=== PATIENT | male | born 1935 | race Caucasian/White ===

== ENCOUNTER 2020-06-04 12:25 | Emergency (ER) | payer MEDICARE, SELFPAY ==
--- NOTE | ~2020-06-04 | XR_ITS ---
EXAMINATION: XR abdomen/kub 1V INDICATION: Abdominal pain TECHNIQUE: Supine views of the abdomen were obtained on 2 radiographs. COMPARISON: None FINDINGS: The bowel gas pattern is normal. No dilated loops of bowel are evident. At least moderate l umbar spondylosis is noted. There is mild osteoarthritis of the hips. IMPRESSION: 1. No radiographic correlate for the patient's symptoms. Reviewed, dictated and finalized at location A.
[2020-06-04 12:38] VITALS: BP 181/79; PULSE 76; RESP 20; TEMP 36.6; O2SAT 99
--- NOTE | 2020-06-04 12:42 | ED.GENADULT ---
HPI - General Adult General Chief complaint: Urogenital-Male Stated complaint: UTI issues/abdominal pain Time Seen by Provider: 06/04/20 12:42 Source: patient, family (son and daughter) and RN notes reviewed Mode of arrival: ambulatory Limitations: other (memory loss) History of Present Illness HPI narrative: 85-year-old noncompliant male presents with daughter and son, whom all complains of fatigue, nausea, abdominal pain, dysuria for the past 10 days. Dysuria consist of burning, decrease urine, and urgency. History of BPH (last CT urogram on 05/23/20 showed a markedly enlarge prostate, RT kidney 11.4cm pole to pole, and LT 11.4cm pole to pole) and wears a depends. No treatment.? Denies fever or chills.? Denies vomiting.? No genital discharge.? No concerns for STDs. No flank pain.? Exacerbating factors urinating. Denies hematuria or genital bleeding.? Tolerating liquids well.? Ezra says he has decrease his liquid intake due to the pain he has with urination. LBM was this morning per Ezra with some straining. The patient reports he have not been diagnosed with COVID-19. The patient reports he is not waiting for the results of a COVID-19 lab test. The patient reports he do not have fever, chills, weakness. The patient reports he do not have a new or worsening cough or shortness of breath. Denies chest pain. The patient reports he do not have any rhinorrhea, congestion, sore throat, loss of taste, vomiting, or diarrhea. Denies recent traveling. Denies concerns for COVID-19 or exposures been home with limited outdoor exposure except for essential household needs and return home. At this time, patient is not suspected of having COVID-19. Some parts of this dictation were generated by voice recognition software and may contain typographical and/or grammatical inaccuracies. Related Data Home Medications Medication Instructions Recorded Confirmed Aricept 06/04/20 Flomax 06/04/20 Inderal XL 06/04/20 Metrogel 06/04/20 Plavix 06/04/20 Proscar 06/04/20 Tricor 06/04/20 Zyloprim 06/04/20 allopurinol 06/04/20 sertraline 06/04/20 trazodone 06/04/20 Allergies Allergy/AdvReac Type Severity Reaction Status Date / Time No Known Allergies Allergy Verified 06/04/20 12:42 Review of Systems Review of Systems: Narrative: CONSTITUTIONAL: Denies fever, chills, sweats. EYES: Denies visual changes, redness, discharge. ENT: Denies rhinorrhea, congestion, sore throat, otalgia. CARDIOVASCULAR: Denies chest pain, palpitations, edema. RESPIRATORY: Denies dyspnea, wheezing, cough. GASTROINTESTINAL: Denies vomiting, diarrhea. Complains of abdominal pain, nausea. GENITOURINARY: Complains of dysuria (burning, small amount, and urgency). Denies hematuria, abnormal discharge. SKIN: Denies rash or itching. MUSCULOSKELETAL: Denies acute back pain, joint pain, or myalgia. NEUROLOGIC: Denies numbness or focal weakness. PSYCHIATRIC: Denies anxiety or depression. All other systems reviewed are negative, except as documented in HPI and below. [facility] Past Medical History Medical History (Updated 06/06/20 @ 14:02 by PAT Spence) Anxiety Arthritis Benign prostatic hyperplasia CVA (cerebral vascular accident) Encephalopathy Gout Hypercholesteremia Hypertension Memory loss Obstructive sleep apnea Peripheral nerve disease Squamous cell carcinoma Surgical History Surgical History (Updated 06/04/20 @ 13:15 by PAT Spence) S/P skin biopsy squamous cell carcinoma Family History Family History (Updated 06/04/20 @ 13:51 by PAT Spence) Father Unknown family medical history Mother Unknown family medical history Social History Social History (Updated 06/04/20 @ 13:16 by PAT Spence) Living arrangements: alone Occupation/Education: retired Gender identity (if verbalized by the patient): Male Sexual Orientation (if Verbalized by the Patie
[2020-06-04] MEDS: ONDANSETRON HCL ODT 4 MG TABLET PO ×2 (12:54→13:24)
--- NOTE | 2020-06-04 13:30 | PC.NURSE ---
Patient had no relief after 1st zofran. SAMPLE SHOE INSPECTOR AND REWORKER ordered second dose of 4 mg. 1 minute after administering patient vomited 300 ml of green fluid. Patient given another dose of zofran att this time.
== END 2020-06-04 13:50 | disposition short-term general hospital (02) ==
PROVIDERS: Emergency Provider Nurse Practitioner Family
DX: R10.9 Unspecified abdominal pain (principal); R11.2 Nausea with vomiting, unspecified; F41.9 Anxiety disorder, unspecified; M19.90 Unspecified osteoarthritis, unspecified site; N40.0 Benign prostatic hyperplasia without lower urinary tract symptoms; Z86.73 Personal history of transient ischemic attack (TIA), and cerebral infarction without residual deficits; M10.9 Gout, unspecified; E78.00 Pure hypercholesterolemia, unspecified; I10 Essential (primary) hypertension; G47.33 Obstructive sleep apnea (adult) (pediatric); Z85.828 Personal history of other malignant neoplasm of skin; Z79.01 Long term (current) use of anticoagulants
CPT/HCPCS: 74018; 81003; 87086; 87088; 99213; A9270; G0463

== ENCOUNTER 2021-10-22 22:21 | Inpatient (IN) | payer MEDICARE, SELFPAY ==
[2021-10-22] VITALS (7 sets, daily range): BP systolic 163–166; BP diastolic 73–78; PULSE 89–97; RESP 13–24; TEMP 37.1; O2SAT 98–99
--- NOTE | ~2021-10-22 | XR_ITS ---
XR knee RT 3V DATE: 10/22/2021 23:06 INDICATION: Fall. Right knee injury, pain TECHNIQUE: 3 views COMPARISON: There is very FINDINGS: There is severe enthesopathy of the patella at the quadriceps and patellar tendon insertion s as well as the proximal tibia at the patellar tendon insertion. No fracture or dislocation or joint effusion is evident. No periosteal reaction or bone destruction. There is chondrocalcinosis. Joint spaces are relatively preserved. There is mild periarticular spurri ng of the patella. There is extensive calcification of the femoral, popliteal and trifurcation arteries. IMPRESSION: No fracture or dislocation or joint effusion Prominent enthesopathy of the patella and proximal tibia the quadriceps and patellar tendon insertion sites Chondrocalcinosis Mild osteoarthritis Reviewed, dictated and finalized at location A. Y LOADER IMPRESSION: No fracture or dislocation or joint effusion Prominent enthesopathy of the patella and proximal tibia the quadriceps and pat ellar tendon insertion sites Chondrocalcinosis Mild osteoarthritis
--- NOTE | ~2021-10-22 | CT_ITS ---
EXAMINATION: CT brain wo con EXAM DATE: 10/23/2021 00:46 INDICATION: head injury on eliquis . TECHNIQUE: Spiral CT of the head was performed without contrast. Axial, coronal and sagittal images were reviewed. The dose-length product (DLP) for this examination was 681.00 mGy-cm. The exposure w as tailored according to patient size, and iterative reconstruction (ASIR) was used as additional dos e reduction technique. There is no prior study for comparison. FINDINGS: Small old right parietal lobe infarction. There is no acute intraparenchymal hemorrhage. N o evidence of intraparenchymal brain mass lesion. No evidence of acute infarction. Please note that initial head CT has limited sensitivity for small or acute infarctions. There is moderate periven tricular and subcortical hypodensity, nonspecific but probably related to small vessel ischemic disea se. There is moderate prominence of the sulci and ventricles related to cerebral atrophy. There i s intracranial carotid arteriosclerosis. There are no extra-axial collections. There is no mass eff ect or midline shift. The orbits are unremarkable. Small right vertex scalp contusion. The visualiz ed sinuses and mastoid air cells are well aerated. IMPRESSION: 1. No acute intracranial findings. 2. Chronic age related findings. 3. Small old right parietal lobe cortical infarction. 4. Small right vertex scalp contusion. Reviewed, dictated and finalized at location A. PATIONAL HEALTH MANAGER
--- NOTE | ~2021-10-22 | XR_ITS ---
XR elbow RT min 3V DATE: 10/22/2021 23:06 INDICATION: Pain following fall, right elbow injury TECHNIQUE: 3 views COMPARISON: None FINDINGS: Prominent dorsal olecranon process spur. No recent fracture or dislocation or joint effusion is evident. No periosteal reaction or bone destru ction. IMPRESSION: No recent fracture or dislocation or joint effusion Dorsal olecranon spur Reviewed, dictated and finalized at location A. COPTER MECHANIC
--- NOTE | ~2021-10-22 | CT_ITS ---
EXAMINATION: CT cervical spine wo con EXAM DATE: 10/23/2021 00:45 INDICATION: Neck pain status post fall TECHNIQUE: Spiral CT of the cervical spine was performed without contrast. Axial images were reviewe d. Coronal and sagittal reformatted images cervical spine were also reviewed. The dose-length produc t (DLP) for this examination was 648.03 mGy-cm. The exposure was tailored according to patient size (auto mA exposure control), and iterative reconstruction (ASIR) was used as additional dose reduction technique. There is no prior study for comparison. FINDINGS: There is flow enthesopathy bridging the entire cervical thoracic spine without fracture hallie e identified through it. There is also ossification of the posterior longitudinal ligament causing mo derate central canal stenosis. Most of the facet joint are also fused. There is no evidence of acute cervical fracture. The odontoid process is intact. Pre-dens space is normal. Prevertebral soft tis monica is normal. There are no soft tissue abnormalities identified. There is no disc space widening o r traumatic vertebral body subluxation suspected. Carotid arteriosclerosis. A detailed level by level evaluation of spondylosis can be added as addendum if requested. IMPRESSION: 1. No acute cervical fracture. 2. Cervical spine fusion at the endplates margins, facet joints. 3. 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 Reviewed, dictated and finalized at location A. E MIDWIFE/CLINICAL INSTRUCTOR
--- NOTE | ~2021-10-22 | XR_ITS ---
XR elbow LT min 3V DATE: 10/22/2021 23:06 INDICATION: Left elbow pain following injury from fall TECHNIQUE: 3 views COMPARISON: None FINDINGS: Prominent dorsal olecranon process spur. No recent fracture or dislocation or joint effusion is detected. IMPRESSION: Prominent dorsal olecranon process spur No recent fracture or dislocation or joint effusion Reviewed, dictated and finalized at location A. ROLLER
--- NOTE | ~2021-10-22 | CT_ITS ---
EXAMINATION: CT chest abdomen pelvis w con EXAM DATE: 10/23/2021 00:46 INDICATION: Fall on eliquis, multiple bruises, RLQ tenderness. TECHNIQUE: Spiral CT of the chest, abdomen and pelvis was performed following intravenous injection o f 100 mL Omnipaque 350. Axial, coronal and sagittal images chest, abdomen and pelvis were reviewed. Coronal maximum intensity pixel images of chest reviewed. The dose-length product (DLP) for this ex amination was 1312.24 mGy-cm. The exposure was tailored according to patient size (auto mA exposure control), and iterative reconstruction (ASIR) was used as additional dose reduction technique. There is no prior study for comparison. FINDINGS: CHEST: Mildly aneurysmal ascending aorta at 4.5 cm. Moderate amount of interlobular septal thickening , interstitial lung disease. There are no pleural or pericardial effusions. Tracheobronchial tree is patent. There is no mediastinal, hilar or axillary lymphadenopathy. There is no pneumothorax. Heart is normal in size. There may be left ventricular hypertrophy. There is mild coronary arteria l calcification, arterial sclerosis. Patient has diffuse idiopathic skeletal hyperostosis (DISH). No fracture through this. ABDOMEN PELVIS: Benign peripherally calcified splenic lesion measuring about 1.5 cm. Pancreas, liver, adrenal glands are unremarkable. Gallbladder is unremarkable. No biliary obstruction. Portal and splenic veins are patent. Kidneys enhance symmetrically. There is no hydronephrosis. There is sev ere prostatomegaly, prostate measuring 6.5 cm in diameter. Some diffuse bladder wall thickening, cou ld indicate chronic cystitis, could be from outlet obstruction, BPH. Acute cystitis not excludable. There is no retroperitoneal or pelvic lymphadenopathy. There is moderate scattered arteriosclerotic disease. There is right-sided hydrocele. Possible identification of a normal appendix. The stomach and small bowel are unremarkable. There i s expected amount of colonic stool. No free intraperitoneal gas. There are no acute fractures alpesh ntified. Moderate bilateral hip osteoarthritis. Chronic bilateral L5 spondylolysis. IMPRESSION: 1. No acute chest, abdomen or pelvis findings. 2. Severe prostatomegaly, bladder wall thickening probably chronic cystitis. Could be from BPH, outl et obstruction. 3. Moderate amount of pulmonary fibrosis. 4. Mildly aneurysmal ascending aorta. Reviewed, dictated and finalized at location A. UCTION ASSOCIATE IMPRESSION: 1. No acute chest, abdomen or pelvis findings. 2. Severe prostatomegaly, bladder wall thickening probably chronic cystitis. C ould be from BPH, outlet obstruction. 3. Moderate amount of pulmonary fibrosis. 4. Mildly aneurysmal ascending aorta.
--- NOTE | ~2021-10-22 | XR_ITS ---
XR knee LT 3V DATE: 10/22/2021 23:06 INDICATION: Fall, left knee injury, pain TECHNIQUE: 3 views COMPARISON: None FINDINGS: No fracture or dislocation or joint effusion. No periosteal reaction or bone destruction. There is very prominent enthesopathy of the patella at the quadriceps and patellar tendon insertion s ites and the proximal tibia at the patellar tendon insertion site. There is chondrocalcinosis at the knee. Knee joint spaces are relatively preserved. There is femoral and popliteal and trifurcation artery calcification. IMPRESSION: No fracture or dislocation or joint effusion Chondrocalcinosis Prominent enthesopathy of the patella and proximal tibia at quadriceps and patellar tendon insertion sites Reviewed, dictated and finalized at location A. SCIENCE AND PLANNING IMPRESSION: No fracture or dislocation or joint effusion Chondrocalcinosis Prominent enthesopathy of the patella and proximal tibia at quadriceps and mcwilliams llar tendon insertion sites
[2021-10-22] MEDS: SODIUM CHLORIDE 0.9% IV 1,000 ML 250 ML IV CONT (23:07)
--- NOTE | 2021-10-22 23:17 | ED.GENADULT ---
HPI - General Adult General Chief complaint: Weakness Stated complaint: mult falls Time Seen by Provider: 10/22/21 22:28 History of Present Illness HPI narrative: Patient is a 86-year-old gentleman who presents the emergency department with chief complaint of frequent falls. Patient lives by himself has a history of dementia and frequent falls patient fell multiple times in the last couple of days including laying on the ground for approximately 8hours the patient reports that he has pain in his back area and reports that he has a couple of wounds on his back and reports that his arms are sore after he has been trying to pull himself up the patient reports that he continued to scream for help. The patient's family reports that they are concerned that he may have a urinary tract infection they report that he lives by himself and has a family member that lives about 3 houses down from. Related Data Home Medications Medication Instructions Recorded Confirmed Aricept 06/04/20 Flomax 06/04/20 Inderal XL 06/04/20 Metrogel 06/04/20 Plavix 06/04/20 Proscar 06/04/20 Tricor 06/04/20 Zyloprim 06/04/20 allopurinol 06/04/20 sertraline 06/04/20 trazodone 06/04/20 Allergies Allergy/AdvReac Type Severity Reaction Status Date / Time No Known Allergies Allergy Verified 06/04/20 12:42 Review of Systems Review of Systems: A 10 system review of systems was completed on the patient and is negative except for what is stated in the HPI. Nursing and ancillary documentation was reviewed. [facility] Past Medical History Medical History Anxiety Arthritis Benign prostatic hyperplasia CVA (cerebral vascular accident) Encephalopathy Gout Hypercholesteremia Hypertension Memory loss Obstructive sleep apnea Peripheral nerve disease Squamous cell carcinoma Surgical History Surgical History S/P skin biopsy squamous cell carcinoma Family History Family History Father Unknown family medical history Mother Unknown family medical history Social History Social History Gender identity (if verbalized by the patient): Male Sexual Orientation (if Verbalized by the Patient): Straight or Heterosexual Exam Narrative: GENERAL: Well-appearing, well-nourished, and in no acute distress. HEAD: Normocephalic, atraumatic. EYES: PERRLA and EOMI. ENT: Nares clear, no rhinorrhea or epistaxis. Mucous membranes moist. NECK: Supple. CHEST: Clear to auscultation. No respiratory distress. HEART: Regular rate and rhythm. No murmur heard. Normal peripheral pulses. ABDOMEN: Soft, nontender, nondistended, normal active bowel sounds. EXTREMITIES: Normal range of motion. No edema. There is tenderness of bilateral elbows and bilateral knees SKIN: Warm, dry, no rash. Multiple bruises, there are 2 small pressure sores in the thoracic area of the back. There is bruising present in the left upper quadrant NEURO: No focal deficits. Alert and oriented x3. PSYCH: Normal mood and affect. Course Course Emergency Course: The patient is on Eliquis and has had multiple falls and increased weakness. Patient has multiple bruises over his body given these findings the patient underwent helical imaging to evaluate for possible internal injuries. Vital Signs Vital signs: Vital Signs Temperature 37.1 C 10/22/21 22:26 Pulse Rate 93 10/22/21 22:26 Respiratory Rate 16 10/22/21 22:26 Blood Pressure 166/78 H 10/22/21 22:26 Temperature 37.1 C 10/22/21 22:26 Pulse Rate 85 10/23/21 00:16 Respiratory Rate 24 H 10/23/21 00:16 Blood Pressure 184/83 H 10/23/21 00:16 Pulse Oximetry 100 10/23/21 00:16 Medical Decision Making Vital Signs Vital Signs: Vital Sig
[2021-10-22 23:24] LABS: Basophils Percent Auto 0.2 % (0.2-1.2); Eosinophils Absolute Auto 0.1 K/mm3 (0-0.3); Eosinophils Percent Auto 0.9 % (0-4.4); Hematocrit 44.8 % (42.0-52.0); Hemoglobin 15.3 g/dL (14.0-18.0); Immature Granulocyte Absolute 0.04 K/mm3 (0.00-0.031); Immature Granulocyte Percent A 0.5 % (0-0.5); Lymphocytes Absolute Auto 1.56 K/mm3 (0.9-3.2); Lymphocytes Percent Auto 17.8 % (18.3-44.2); Mean Corpuscular HGB Conc 34.2 g/dl (32-36); Mean Corpuscular Hemoglobin 30.2 pg (26-34); Mean Corpuscular Volume 88.4 fl (80-100); Mean Platelet Volume 10.3 fl (7.4-10.4); Monocytes Absolute Auto 1.2 K/mm3 (0.1-0.6); Monocytes Percent Auto 13.7 % (2.6-8.5); Neutrophils Absolute Auto 5.9 K/mm3 (1.3-6.7); Neutrophils Percent Auto 66.9 % (45.5-73.1); Platelet Count Result 204 k/mm3 (150-375); Red Blood Count 5.07 M/mm3 (4.6-6.20); Red Cell Distribution Width 13.6 % (11.5-14.5); White Blood Count 8.8 K/mm3 (4.5-10.0)
[2021-10-22 23:33] LABS: Creatine Kinase 1124 U/L (55-170)
[2021-10-22 23:34] LABS: Lactic Acid Reflex 1.5 mmol/L (0.7-2.1)
[2021-10-22 23:36] LABS: Prothrombin Time 13.2 Seconds (11.1-14.7)
[2021-10-22 23:37] LABS: Partial Thromboplastin Time 34.1 SECONDS (22.3-36.8)
--- NOTE | 2021-10-22 23:37 | PC.NURSE ---
Pt refusing straight catheter at this time. Urinal at bedside. Pt aware of need for specimen.
[2021-10-22 23:49] LABS: Alanine Aminotransferase 41 U/L (4-50); Albumin Level 3.9 g/dL (3.5-5.1); Alkaline Phosphatase 55 U/L (38-126); Anion Gap 11 mmol/L (8-16); Aspartate Amino Transferase 80 U/L (17-59); Blood Urea Nitrogen 19 mg/dL (9-20); Calcium 8.9 mg/dL (8.4-10.2); Carbon Dioxide 26 mmol/L (22-30); Chloride 103 mmol/L (98-107); Estimated Glomerular Filt Rate > 60; Glucose 156 mg/dL (65-110); Magnesium 1.9 mg/dL (1.6-2.3); Potassium 2.8 mmol/L (3.4-5.0); Sodium 140 mmol/L (137-145)
[2021-10-22 23:54] LABS: Add Urine Microscopic? YES; Appearance Urine Turbid (Clear); Bacteria Urine 4+ /hpf; Bilirubin Urine Negative (Negative); Blood Urine 1+ (Negative); Color Urine Yellow (Yellow); Glucose Urine UA 1+ mg/dL (Negative); Hyaline Casts Urine 30-49 /lpf; Ketones Urine Trace mg/dL (Negative); Leukocyte Esterase Ur 2+ LEU/UL (Negative); Mucus Urine Moderate /lpf; Nitrate Urine Negative (Negative); Protein Urine 2+ mg/dL (Negative); RBC Urine 21-50 /hpf (0-2); Specific Grav Ur 1.018 (1.001-1.035); WBC Clumps Urine Present /HPF; WBC Urine >75 /hpf
[2021-10-22 23:56] LABS: SARS-CoV-2 RNA PCR Negative
[2021-10-22 23:57] LABS: Troponin I < 0.012 ng/mL (0.000-0.034)
[2021-10-23] VITALS (12 sets, daily range): BP systolic 128–184; BP diastolic 50–98; PULSE 71–90; RESP 16–24; TEMP 36.4–36.8; O2SAT 97–100; BMI 24.3
--- NOTE | 2021-10-23 00:18 | PC.NURSE ---
Pt to CT at this time.
[2021-10-23] MEDS: MAGNESIUM SULF 1 GM/D5W 100 ML 1 GM/100 ML BAG IVPB (01:17)
[2021-10-23] MEDS: POTASSIUM CHLORIDE INJ 40 MEQ in SODIUM CHLORIDE 0.9% IV 500 ML 130 MEQ IVPB (01:36)
--- NOTE | 2021-10-23 03:28 | ADMGEN ---
This patient, Ezra Arias, was admitted to Medical Room 242-. Patient/family oriented to hospital policies and general routines including ID bracelet, bed and alarms, visiting hours, pain management, procedures, bathroom and other care routines, personal items, smoking policy, room service/diet, and visiting hours. Information on how to activate the Rapid Response Team has been discussed. Patient/Family are encouraged to report perceived risks to care and to ask questions if they do not understand what they are told or what they should do.
[2021-10-23] MEDS: SODIUM CHLORIDE 0.9% IV 1,000 ML 125 ML IV CONT ×3 (05:39→20:13)
--- NOTE | 2021-10-23 07:36 | PM.IMHP ---
H&P: HPI History of Present Illness Date/Time: 10/23/21 07:36 Chief Complaint: Fall Narrative: Patient is an 86-year-old male with past medical history of CVA, frequent falls, frequent UTIs, hypertension, BPH who presented to the ED after for falling. Patient stated that he had went to the bathroom and fell in the bathroom crawled all the way to the kitchen to get himself up and then fell again. Patient stated that he laid on the kitchen floor for roughly 8 hours before somebody had found him. He states that his knees, calfs, arms are all very achy and hurt. Patient also states that he has not had any urgency or frequency to urinate however he has been getting up and going to the bathroom 5-6 times per night. Patient is very disgruntled and wants to go home however I did explain to him about his rhabdomyolysis. He also stated that he felt like his ears were full of wax. I did look into his ears and they are pretty waxy but everything is intact and does not appear to be bulging. Patient did state that he has a little bit of incontinence to stool and will sometimes ?squirt into his pee pants.? Patient also stated that he does have frequent UTIs. Patient also stated that he has had history of urinary catheters and sees a urologist. Patient also stated that he has been cough and been congested lately. Patient states that he has done this in the past. However he would like to go home he feels more comfortable there. Patient denies chest pain, shortness of breath, abdominal pain, nausea, vomiting, diarrhea, congestion. Patient did eat breakfast and stated that he could eat more than what was provided. Patient also stated that he was having pain, where he hit his eye that has a welp on it. He denies visual deficients. He does get up and walk at home. He also is complaining of back pain. He denies sweats, fevers, and chills. Patient is being admitted to the hospitalist service in observation. Review of Systems Review of Systems: All systems reviewed & are unremarkable except as noted in HPI and below PMFSH Past Medical History Medical History Anxiety Arthritis Benign prostatic hyperplasia CVA (cerebral vascular accident) Encephalopathy Gout Hypercholesteremia Hypertension Memory loss Obstructive sleep apnea Peripheral nerve disease Squamous cell carcinoma Surgical History Surgical History S/P skin biopsy squamous cell carcinoma Family History Family History Father Unknown family medical history Mother Unknown family medical history Social History Social History (Updated 10/23/21 @ 11:35 by CASEY Weiss) Social History: 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 Patient wishes to be a full code at this time. Patient also states that his son Sameer or his daughter Marla will be surrogate for him if he is not able to make his own decisions. Patient lives at home by himself and wants to keep it that way. 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
[2021-10-23] MEDS: MORPHINE SULFATE (*CRX) 4 MG/ML INJ 0.5 MG IV PUSH (09:36)
[2021-10-23] MEDS: APIXABAN 5 MG TABLET PO ×2 (09:40→18:05)
[2021-10-23] MEDS: ROSUVASTATIN 10 MG TABLET 20 MG PO (09:40)
[2021-10-23] MEDS: FINASTERIDE 5 MG TABLET PO (09:40)
[2021-10-23] MEDS: SERTRALINE HCL 50 MG TABLET PO (09:41)
[2021-10-23] MEDS: FELODIPINE 5 MG TAB CR PO (09:41)
[2021-10-23] MEDS: POTASSIUM CHLORIDE 20 MEQ TABLET.ER PO (09:41)
[2021-10-23] MEDS: allopurinoL 300 MG TABLET PO (09:41)
[2021-10-23] MEDS: FENOFIBRATE,MICRONIZED 48 MG TABLET PO (12:09)
[2021-10-23] MEDS: HYDROcodone/acetaminophen (*CRX) 5-325 MG TABLET 1 TAB PO (12:55)
--- NOTE | 2021-10-23 16:52 | PC.NURSE ---
On 10/23/21 the student Mine Jimenez, provided care and completed [employer] documentation on this patient I have reviewed the student's documentation and agree with the findings
[2021-10-23] MEDS: DONEPEZIL HCL 5 MG TABLET PO (20:07)
[2021-10-23] MEDS: traZODone HCL 50 MG TABLET PO (20:07)
[2021-10-23] MEDS: TAMSULOSIN HCL 0.4 MG CAPSULE PO (20:07)
[2021-10-24] VITALS: PULSE 68
[2021-10-24 04:00] VITALS: PULSE 80
[2021-10-24] MEDS: SODIUM CHLORIDE 0.9% IV 1,000 ML 125 ML IV CONT (04:41)
[2021-10-24 05:35] VITALS: BP 159/72; PULSE 78; RESP 16; TEMP 36.6; O2SAT 94
[2021-10-24] MEDS: HYDROcodone/acetaminophen (*CRX) 5-325 MG TABLET 1 TAB PO (05:52)
[2021-10-24 05:53] LABS: Basophils Percent Auto 0.4 % (0.2-1.2); Eosinophils Absolute Auto 0.3 K/mm3 (0-0.3); Eosinophils Percent Auto 5.5 % (0-4.4); Hematocrit 35.9 % (42.0-52.0); Hemoglobin 12.4 g/dL (14.0-18.0); Immature Granulocyte Absolute 0.01 K/mm3 (0.00-0.031); Immature Granulocyte Percent A 0.2 % (0-0.5); Lymphocytes Absolute Auto 1.57 K/mm3 (0.9-3.2); Lymphocytes Percent Auto 30.9 % (18.3-44.2); Mean Corpuscular HGB Conc 34.5 g/dl (32-36); Mean Corpuscular Volume 86.9 fl (80-100); Mean Platelet Volume 10.5 fl (7.4-10.4); Monocytes Absolute Auto 0.7 K/mm3 (0.1-0.6); Monocytes Percent Auto 13.2 % (2.6-8.5); Neutrophils Absolute Auto 2.5 K/mm3 (1.3-6.7); Neutrophils Percent Auto 49.8 % (45.5-73.1); Platelet Count Result 193 k/mm3 (150-375); Red Blood Count 4.13 M/mm3 (4.6-6.20); Red Cell Distribution Width 13.4 % (11.5-14.5); White Blood Count 5.1 K/mm3 (4.5-10.0)
[2021-10-24 06:26] LABS: Alanine Aminotransferase 29 U/L (4-50); Alkaline Phosphatase 41 U/L (38-126); Anion Gap 5 mmol/L (8-16); Aspartate Amino Transferase 44 U/L (17-59); Bilirubin,Total 0.7 mg/dL (0.2-1.3); Blood Urea Nitrogen 7 mg/dL (9-20); Calcium 7.7 mg/dL (8.4-10.2); Carbon Dioxide 27 mmol/L (22-30); Chloride 108 mmol/L (98-107); Creatine Kinase 390 U/L (55-170); Estimated CRCL calculation 81 ml/min; Estimated Glomerular Filt Rate > 60; Glucose 100 mg/dL (65-110); Magnesium 1.7 mg/dL (1.6-2.3); Potassium 2.7 mmol/L (3.4-5.0); Sodium 140 mmol/L (137-145)
[2021-10-24] MEDS: POTASSIUM CHLORIDE 20 MEQ TABLET 40 MEQ PO (06:40)
[2021-10-24] MEDS: MAGNESIUM SULF 2 GM/WATER 50ML 2 GM/50 ML BAG IVPB (07:47)
[2021-10-24] MEDS: POTASSIUM CHLORIDE INJ 40 MEQ in SODIUM CHLORIDE 0.9% IV 500 ML 130 MEQ IVPB (08:16)
[2021-10-24 09:15] VITALS: PULSE 83
[2021-10-24] MEDS: APIXABAN 5 MG TABLET PO (09:45)
[2021-10-24] MEDS: HYDROmorphone HCL INJ (*CRX) 1 MG/ML SYR 0.5 MG IV PUSH (09:45)
[2021-10-24] MEDS: POTASSIUM CHLORIDE 20 MEQ PACKET (FOR LIQUID) PO (09:45)
--- NOTE | 2021-10-24 10:15 | P.DS_ITS ---
DS: Admitting Diagnosis Discharge Date 10/24/21 1015 Admitting Diagnosis Acute UTI/fall DS: Discharge Diagnosis Discharge Diagnosis (1) Falls frequently: Code(s): R29.6 - Repeated falls Status: Acute Assessment and Plan: * reported multiple falls over the last few weeks * No found injuries * reports pain * Elbow xray- No recent fracture or dislocation or joint effusion, Dorsal olecranon spur * knee xray- No fracture or dislocation or joint effusion * Cervical CT no acute fracture * Head ct- old infarcts * UA suspicious for UTI * PT/OT * Fall precautions * Orthostatic BP (2) Rhabdomyolysis: Qualifiers: Rhabdomyolysis type: non-traumatic Qualified Code(s): M62.82 - Rhabdomyolysis Code(s): M62.82 - Rhabdomyolysis Status: Acute Assessment and Plan: * CK 390 today * Reported on the floor for >8 hours * IV fluids 125ml/hr * Trend labs * Trend urine output * Monitor electrolytes (3) Acute hypokalemia: Code(s): E87.6 - Hypokalemia Status: Acute Assessment and Plan: * K 2.7 * Replace with 40IV and 40PO + 20 that is scheduled * Recheck K 1 hour post infusion * Tend labs * Replace as indicated (4) Benign prostatic hyperplasia: Code(s): N40.0 - Benign prostatic hyperplasia without lower urinary tract symptoms Status: Acute Assessment and Plan: * Continue tamsulosin and finasteride * PRN bladder scans * Consider urinary catheter * Trend output * Strict I&Os (5) Hyperlipidemia: Code(s): E78.5 - Hyperlipidemia, unspecified Status: Acute Assessment and Plan: * Continue home rosuvastatin 20mg (6) Dementia: Code(s): F03.90 - Unspecified dementia without behavioral disturbance Status: Acute Assessment and Plan: * Continue Donepezil, sertraline, and trazodone * Monitor symptoms * Could need to be placed. (7) Acute UTI: Code(s): N39.0 - Urinary tract infection, site not specified Status: Acute Assessment and Plan: * UA is turbid, 1+ blood, 2+ Leukocyte esterase, WBC >75, WBC clumps present, Bacteria 4+, moderate Mucus * IV ceftriaxone * Urine culture Klebsiella oxytoca * Will DC on augmentin * tailor to sensitivities DS: Summary Hospital Course Hospital Course: Patient is an 86-year-old male with a past medical history of CVA, frequent falls, frequent UTIs, hypertension, BPH presented to the ED after falling. Patient fell more than once prior to entry and admission. Upon admission labs were taken and patient was noted to have an elevated CK of 1124. Patient was started on IV fluids and CK his came down to 290. UA was collected and was suspicious for UTI urine culture did present with Klebsiella oxytoca which was sensitive to ceftriaxone and will be converted to Augmentin upon discharge. Potassium was also noted to be low at 2.8 upon admission and 2.7 today. Patient was given IV and oral supplementation and potassium is better at 3.5. Patient was also treated for back and neck pain. Patient cannot seem to get comfortable however is ready to go home. Patient is stable for discharge at this time. Vital signs are stable. Labs have also came back and are stable enough for discharge. Talked to his son day and about discharge planning. Explained to the son that I feel like he needs to have an appointment with his primary care physician with
--- NOTE | 2021-10-24 10:15 | PM.DS ---
DS: Admitting Diagnosis Discharge Date 10/24/21 1015 Admitting Diagnosis Acute UTI/fall DS: Discharge Diagnosis Discharge Diagnosis (1) Falls frequently: Code(s): R29.6 - Repeated falls Status: Acute Assessment and Plan: reported multiple falls over the last few weeks No found injuries reports pain Elbow xray- No recent fracture or dislocation or joint effusion, Dorsal olecranon spur knee xray- No fracture or dislocation or joint effusion Cervical CT no acute fracture Head ct- old infarcts UA suspicious for UTI PT/OT Fall precautions Orthostatic BP (2) Rhabdomyolysis: Qualifiers: Rhabdomyolysis type: non-traumatic Qualified Code(s): M62.82 - Rhabdomyolysis Code(s): M62.82 - Rhabdomyolysis Status: Acute Assessment and Plan: CK 390 today Reported on the floor for >8 hours IV fluids 125ml/hr Trend labs Trend urine output Monitor electrolytes (3) Acute hypokalemia: Code(s): E87.6 - Hypokalemia Status: Acute Assessment and Plan: K 2.7 Replace with 40IV and 40PO + 20 that is scheduled Recheck K 1 hour post infusion Tend labs Replace as indicated (4) Benign prostatic hyperplasia: Code(s): N40.0 - Benign prostatic hyperplasia without lower urinary tract symptoms Status: Acute Assessment and Plan: Continue tamsulosin and finasteride PRN bladder scans Consider urinary catheter Trend output Strict I&Os (5) Hyperlipidemia: Code(s): E78.5 - Hyperlipidemia, unspecified Status: Acute Assessment and Plan: Continue home rosuvastatin 20mg (6) Dementia: Code(s): F03.90 - Unspecified dementia without behavioral disturbance Status: Acute Assessment and Plan: Continue Donepezil, sertraline, and trazodone Monitor symptoms Could need to be placed. (7) Acute UTI: Code(s): N39.0 - Urinary tract infection, site not specified Status: Acute Assessment and Plan: UA is turbid, 1+ blood, 2+ Leukocyte esterase, WBC >75, WBC clumps present, Bacteria 4+, moderate Mucus IV ceftriaxone Urine culture Klebsiella oxytoca Will DC on augmentin tailor to sensitivities DS: Summary Hospital Course Hospital Course: Patient is an 86-year-old male with a past medical history of CVA, frequent falls, frequent UTIs, hypertension, BPH presented to the ED after falling. Patient fell more than once prior to entry and admission. Upon admission labs were taken and patient was noted to have an elevated CK of 1124. Patient was started on IV fluids and CK his came down to 290. UA was collected and was suspicious for UTI urine culture did present with Klebsiella oxytoca which was sensitive to ceftriaxone and will be converted to Augmentin upon discharge. Potassium was also noted to be low at 2.8 upon admission and 2.7 today. Patient was given IV and oral supplementation and potassium is better at 3.5. Patient was also treated for back and neck pain. Patient cannot seem to get comfortable however is ready to go home. Patient is stable for discharge at this time. Vital signs are stable. Labs have also came back and are stable enough for discharge. Talked to his son day and about discharge planning. Explained to the son that I feel like he needs to have an appointment with his primary care physician within the next week. Patient denies chest pain, shortness of breath, nausea, vomiting, diarrhea, constipation. I did also talk to the patient about wearing a Life Alert button so that the patient does not have to lay on the floor and is able to be taking care of prior to coming in. Status at Discharge Functional status at discharge: uses cane/walker Overall status at discharge: patient is progressing back to baseline Time Spent with Patient Time attestation: Total time spent providing and/or coordinating discharge services: 48 mi
[2021-10-24 14:35] VITALS: BP 157/84; PULSE 78; RESP 18; TEMP 36.4; O2SAT 99
[2021-10-24 15:56] LABS: Potassium 3.5 mmol/L (3.4-5.0)
[2021-10-24 16:00] VITALS: PULSE 70
== END 2021-10-24 17:48 | disposition home health service (06) | DRG 690 ==
LOC: ANHED 10-23 01:42 → ANH2MED 10-23 03:03
PROVIDERS: Admitting Provider Internal Medicine; Emergency Provider Emergency Medicine; Visit Provider Nurse Practitioner
DX: N39.0 Urinary tract infection, site not specified (principal); M62.82 Rhabdomyolysis; B96.89 Other specified bacterial agents as the cause of diseases classified elsewhere; Z20.822 Contact with and (suspected) exposure to COVID-19; R29.6 Repeated falls; E87.6 Hypokalemia; N40.0 Benign prostatic hyperplasia without lower urinary tract symptoms; E78.5 Hyperlipidemia, unspecified; F03.90 Unspecified dementia, unspecified severity, without behavioral disturbance, psychotic disturbance, mood disturbance, and anxiety; I10 Essential (primary) hypertension; M19.90 Unspecified osteoarthritis, unspecified site; G47.33 Obstructive sleep apnea (adult) (pediatric); Z85.828 Personal history of other malignant neoplasm of skin; Z86.73 Personal history of transient ischemic attack (TIA), and cerebral infarction without residual deficits; Z87.891 Personal history of nicotine dependence
CPT/HCPCS: 36415; 70450; 71260; 72125; 73080; 73562; 74177; 80053; 81001; 82550; 83605; 83735; 84132; 84484; 85025; 85610; 85730; 87077; 87086; 87186; 96361; 96365; 96366; 96367; 96368; 96375; 96376; 97116; 97161; 97165; 97530; 97535; 99285; A9270; C9803; G0378; J0696; J1170; J2270; J3475; J3480; J7030; J7040; Q9967; U0003; U0005

== ENCOUNTER 2021-12-07 15:57 | Outpatient (NON) | payer MEDICARE, SELFPAY ==
[2021-12-07 16:35] LABS: Add Urine Microscopic? YES; Appearance Urine Cloudy (Clear); Bilirubin Urine Negative (Negative); Blood Urine Negative (Negative); Color Urine Yellow (Yellow); Glucose Urine UA Negative (Negative); Hyaline Casts Urine 30-49 /lpf; Ketones Urine Negative (Negative); Leukocyte Esterase Ur 1+ LEU/UL (NEGATIVE); Mucus Urine Rare /lpf; Nitrate Urine Negative (Negative); Protein Urine Negative (Negative); Specific Grav Ur 1.017 (1.001-1.035); Squamous Epithelial Cell Urine Few /hpf (Few); Urobilinogen Urine Negative mg/dL (<2.0)
== END 2021-12-07 15:58 | disposition home or self-care (01) ==
LOC: HOME HLTH 16:04
DX: N39.0 Urinary tract infection, site not specified (principal); E87.6 Hypokalemia; M62.82 Rhabdomyolysis; F03.90 Unspecified dementia, unspecified severity, without behavioral disturbance, psychotic disturbance, mood disturbance, and anxiety
CPT/HCPCS: 81001; 87077; 87086; 87186

== ENCOUNTER 2022-05-09 21:35 | Inpatient (IN) | payer MEDICARE, SELFPAY ==
--- NOTE | ~2022-05-09 | XR_ITS ---
EXAMINATION: XR abdomen/kub 1V DATE: 05/15/2022 15:37 INDICATION: Abdominal pain. TECHNIQUE: A supine view of the abdomen on 2 radiographs was obtained. COMPARISON: CT abdomen and pelvis 10/23/2021 FINDINGS: There are no dilated loops of bowel. There is a small volume of stool in the colon. There i s no visible urolithiasis. IMPRESSION: 1. Normal bowel gas pattern. Reviewed, dictated and finalized at location A.
--- NOTE | ~2022-05-09 | MR_ITS ---
EXAMINATION: MR brain/brain stem wo con DATE: 05/10/2022 14:50 INDICATION: Altered mental status. TECHNIQUE: Magnetic resonance imaging (MRI) of the brain and brainstem was performed without intraven ous contrast. COMPARISON: Head CT 05/09/2022 FINDINGS: There is no intracranial hemorrhage, acute infarction, or abnormal intracranial mass lesion . There are scattered areas of nonspecific increased T2-weighted signal intensity in the cerebral whi te matter and shelly. There is an old infarct in right parietal lobe. There is an old infarct in right occipital lobe. The ventricles are normal in size. There is mild mucosal thickening in the ethmoid si nuses. The orbits are normal. The mastoid air cells are normal. IMPRESSION: 1. Old infarcts in the right parietal lobe and right occipital lobe. 2. Moderate nonspecific cerebral white matter disease and pontine disease, which likely represents ch ronic small vessel ischemic disease. Reviewed, dictated and finalized at location A. IMPRESSION: 1. Old infarcts in the right parietal lobe and right occipital lobe. 2. Moderate nonspecific cerebral white matter disease and pontine disease, whic h likely represents chronic small vessel ischemic disease.
--- NOTE | ~2022-05-09 | XR_ITS ---
EXAMINATION: XR chest 1V portable DATE: 05/10/2022 00:59 INDICATION: Altered mental status. TECHNIQUE: A single frontal view of the chest was obtained. COMPARISON: Chest CT 10/23/2021 FINDINGS: The lung volumes are normal. There is a diffuse interstitial pattern in the lungs with a pe ripheral and lower lung predominance. No pleural effusion or pneumothorax. The heart size is normal IMPRESSION: 1. Stable chronic interstitial lung disease. Reviewed, dictated and finalized at location A.
--- NOTE | ~2022-05-09 | CT_ITS ---
EXAMINATION: CT brain wo con DATE: 05/10/2022 00:26 INDICATION: Altered mental status. TECHNIQUE: Computed tomography (CT) of the head was performed without intravenous contrast. The mA wa s adjusted according to patient size. Iterative reconstruction technique was employed. The dose-lengt h product was 2019.58 mGy-cm. COMPARISON: Head CT 10/23/2021 FINDINGS: There are scattered areas of low attenuation in the cerebral white matter. There is an old infarct in right parietal lobe. There is no intracranial hemorrhage, acute infarction, or abnormal in tracranial mass lesion. The ventricles are normal in size. The orbits are normal. There is mild mucos al thickening in the ethmoid sinuses. The mastoid air cells are normal. There is cerumen in the exter nal auditory canals. IMPRESSION: 1. Old infarct in right parietal lobe. 2. Moderate nonspecific cerebral white matter disease, which likely represents chronic small vessel i schemic disease. Reviewed, dictated and finalized at location A. IMPRESSION: 1. Old infarct in right parietal lobe. 2. Moderate nonspecific cerebral white matter disease, which likely represents chronic small vessel ischemic disease.
[2022-05-09 21:41] VITALS: BP 152/90; PULSE 113; RESP 30; TEMP 36.6; O2SAT 100
--- NOTE | 2022-05-09 21:41 | ECG_ITS ---
Measurements Intervals [place] Rate: 106 P: DE: 0 QRS: -9 QRSD: 87 T: 63 QT: 354 QTc: 471 Interpretive Statements SINUS TACHYCARDIA WITH PACS PREVIOUS INFERIOR MYOCARDIAL INFARCTION , PROBABLY OLD [30 ms Q WAVE IN II/aVF] ABNORMAL RHYTHM ECG NO PREVIOUS ECG AVAILABLE FOR COMPARISON Electronically Signed On 05-10-2022 10:21:15 CDT by Dipak Robertson M.D.
[2022-05-09 22:18] LABS: Basophils Percent Auto 0.3 % (0.2-1.2); Eosinophils Absolute Auto 0.1 K/mm3 (0-0.3); Eosinophils Percent Auto 1.3 % (0-4.4); Hematocrit 47.4 % (42.0-52.0); Hemoglobin 15.4 g/dL (14.0-18.0); Immature Granulocyte Absolute 0.02 K/mm3 (0.00-0.031); Immature Granulocyte Percent A 0.3 % (0-0.5); Lymphocytes Absolute Auto 1.26 K/mm3 (0.9-3.2); Lymphocytes Percent Auto 18.1 % (18.3-44.2); Mean Corpuscular HGB Conc 32.5 g/dl (32-36); Mean Corpuscular Volume 86.2 fl (80-100); Mean Platelet Volume 10.2 fl (7.4-10.4); Monocytes Absolute Auto 0.6 K/mm3 (0.1-0.6); Monocytes Percent Auto 8.2 % (2.6-8.5); Neutrophils Percent Auto 71.8 % (45.5-73.1); Platelet Count Result 219 k/mm3 (150-375); Red Cell Distribution Width 14.1 % (11.5-14.5)
[2022-05-09 22:23] LABS: Bacteria Urine Trace /hpf; Hyaline Casts Urine 20-29 /lpf; Mucus Urine Rare /lpf; RBC Urine 21-50 /hpf (0-2); Squamous Epithelial Cell Urine Rare /hpf (Few)
--- NOTE | 2022-05-09 22:27 | ED.AMS ---
HPI - Altered Mental Status General Chief Complaint: Altered Mental Status Stated Complaint: AMS Time Seen by Provider: 05/09/22 21:57 History of Present Illness HPI narrative: 87-year-old male brought in by EMS secondary to altered mental status. Patient is got some degree of dementia and is also had CVA as well as multiple TIAs. His daughter was over the house today and he was confused walk around without any pants on look like he was trying to put depends on. He had a blank stare and would not really answer her questions. She called her brother over who came over and witnessed the same thing and subsequently they called 911 and brought to the emergency room. Sons at bedside at this time. Dad lives by himself and for the most part is able to take care of himself. He does have a history of frequent falls but no history of any recent falls that they are aware of. States he has had episodes like this in the past associated with urinary tract infection he does have urinary incontinence. Related Data Home Medications Medication Instructions Recorded Confirmed allopurinol 300 mg tablet 300 mg PO DAILY 10/23/21 10/23/21 apixaban 5 mg tablet (Eliquis) 5 mg PO BID 10/23/21 10/23/21 cholecalciferol (vitamin D3) 50 50 mcg PO DAILY 10/23/21 10/23/21 mcg (2,000 unit) capsule (Vitamin D3) cyanocobalamin (vitamin B-12) 1,000 mcg PO DAILY 10/23/21 10/23/21 1,000 mcg tablet donepezil 5 mg tablet 5 mg PO HS 10/23/21 10/23/21 felodipine 5 mg tablet,extended 5 mg PO DAILY 10/23/21 10/23/21 release 24 hr fenofibrate nanocrystallized 48 mg 48 mg PO DAILY 10/23/21 10/23/21 tablet finasteride 5 mg tablet 5 mg PO DAILY 10/23/21 10/23/21 propranolol 160 mg capsule,24 160 mg PO DAILY 10/23/21 10/23/21 hr,extended release rosuvastatin 20 mg tablet 20 mg PO DAILY 10/23/21 10/23/21 selenium 100 mcg tablet 100 mcg PO DAILY 10/23/21 10/23/21 sertraline 50 mg tablet 50 mg PO DAILY 10/23/21 10/23/21 tamsulosin 0.4 mg capsule 0.4 mg PO HS 10/23/21 10/23/21 trazodone 50 mg tablet 50 mg PO 10/23/21 10/23/21 Allergies Allergy/AdvReac Type Severity Reaction Status Date / Time No Known Allergies Allergy Verified 05/09/22 22:20 Review of Systems Review of Systems: CONSTITUTIONAL: Denies fever, chills, or sweats. EYES: Denies visual changes, redness, or discharge. ENT: Denies rhinorrhea, congestion, sore throat, or otalgia. CARDIOVASCULAR: Denies chest pain, palpitations, or edema. RESPIRATORY: Denies cough or dyspnea. GASTROINTESTINAL: Denies nausea, vomiting, or diarrhea. Complaining of suprapubic abdominal tenderness GENITOURINARY: Denies dysuria or hematuria. Has urinary incontinence SKIN: Denies rash or itching. MUSCULOSKELETAL: Denies back pain, joint pain, or myalgia. NEUROLOGIC: Denies headache, numbness, or weakness. PSYCHIATRIC: Denies anxiety or depression. 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 Patient wishes to be a full code at this time. Patient also states that his son Sameer or his daughter Marla will be surrogate for him if he is not able to make his own decisions. Patient lives at home by himself and wants to keep it that way. Smoking packs per day: 1 Smokin
[2022-05-09 22:28] LABS: Prothrombin Time 12.9 Seconds (11.1-14.7)
[2022-05-09 22:29] LABS: Partial Thromboplastin Time 37.5 SECONDS (22.3-36.8)
[2022-05-09 22:30] LABS: Alanine Aminotransferase 20 U/L (6-50); Albumin Level 4.4 g/dL (3.5-5.1); Alkaline Phosphatase 70 U/L (38-126); Anion Gap 10 mmol/L (8-16); Aspartate Amino Transferase 23 U/L (17-59); Bilirubin,Total 0.7 mg/dL (0.2-1.3); Blood Urea Nitrogen 19 mg/dL (9-20); Calcium 9.6 mg/dL (8.4-10.2); Carbon Dioxide 28 mmol/L (22-30); Chloride 102 mmol/L (98-107); Estimated CRCL calculation 37 ml/min; Estimated Glomerular Filt Rate 52; Glucose 137 mg/dL (65-110); Sodium 140 mmol/L (137-145)
[2022-05-09 22:34] LABS: Appearance Urine Clear (Clear); Bilirubin Urine 1+ (Negative); Blood Urine 2+ (Negative); Color Urine Yellow (Yellow); Glucose Urine UA Negative (Negative); Ketones Urine Negative (Negative); Leukocyte Esterase Ur Negative LEU/UL (Negative); Nitrate Urine Negative (Negative); Protein Urine Negative (Negative); Specific Grav Ur 1.015 (1.001-1.035); Urobilinogen Urine 0.2 mg/dL (<2.0); pH Urine 5.5 (5.0-9.0)
[2022-05-09 22:36] LABS: Add Urine Microscopic? YES
[2022-05-09 23:05] VITALS: BP 144/95; PULSE 99; RESP 17; O2SAT 100
[2022-05-09] MEDS: LORazepam INJ (*CRX) 2 MG/ML VIAL 0.5 MG IV PUSH ×2 (23:17→23:46)
[2022-05-10] VITALS (7 sets, daily range): BP systolic 143–168; BP diastolic 79–95; PULSE 70–92; RESP 17–20; TEMP 36.3–37.5; O2SAT 94–100; BMI 22.3
--- NOTE | 2022-05-10 00:55 | PC.NURSE ---
PT continues to climb out of bed. ERP aware. Son at bedside. Blood in depends noted. ERP called to bedside. Pt also incontinent of urine. Bloody urine noted. Depends changed.
[2022-05-10] MEDS: POTASSIUM CHLORIDE 20 MEQ PACKET (FOR LIQUID) 40 MEQ PO (01:03)
--- NOTE | 2022-05-10 01:07 | PM.IMHP ---
H&P: HPI History of Present Illness Date/Time: 05/10/22 01:07 Chief Complaint: altered mental status Narrative: This is an 87-year-old male with past medical history significant for dementia, stroke, benign prostatic hyperplasia, obstructive sleep apnea. patient was brought to the emergency room via EMS after he was found at home with no clothes on wondering around and a blank stare on his face according to son he was seen the day before at around 5 he was his usual patient lives on his own and is able to fix meals and has a daughter that lives 3 doors from him and checks in frequently. Most of the history has been obtained upon reviewing medical records and speaking to emergency room physician and son who is at bedside patient is unable to give any history due to acute delirium and confusion with restlessness and agitation. Preliminary workup has been essentially nonrevealing. Patient is been admitted for further evaluation management and treatment. Review of Systems Review of Systems: ROS unobtainable: Yes unobtainable due to mental status ( confusion, acute delirium.) [facility] Past Medical History Medical History (Updated 05/10/22 @ 03:50 by Erin Sarah MD) Anxiety Arthritis Benign prostatic hyperplasia CVA (cerebral vascular accident) Encephalopathy Gout Hypercholesteremia Hypertension Memory loss Obstructive sleep apnea Peripheral nerve disease Squamous cell carcinoma Surgical History Surgical History S/P skin biopsy squamous cell carcinoma Family History Family History Father Unknown family medical history Mother Unknown family medical history Social History Social History Social History: 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 Patient wishes to be a full code at this time. Patient also states that his son Sameer or his daughter Marla will be surrogate for him if he is not able to make his own decisions. Patient lives at home by himself and wants to keep it that way. Smoking packs per day: 1 Smoking cigarettes per day: 20.0 Smoking status: Former smoker Alcohol intake: former Drinks per week: 3 Alcohol use details: He no longer likes beer Substance use: never Substance use type: does not use Additional occupation/education comments: [employer] of malpractice and personal injury Gender identity (if verbalized by the patient): Male Sexual Orientation (if Verbalized by the Patient): Straight or Heterosexual Spiritual care concerns: No Agree to blood products: Yes Meds Home Medications and Allergies Home Medications Medication Instructions Recorded Confirmed Type allopurinol 300 mg tablet 300 mg PO DAILY 10/23/21 05/10/22 History cholecalciferol (vitamin D3) 50 50 mcg PO DAILY 10/23/21 05/10/22 History mcg (2,000 unit) capsule (Vitamin D3) cyanocobalamin (vitamin B-12) 1,000 mcg PO DAILY 10/23/21 05/10/22 History 1,000 mcg tablet donepezil 5 mg tablet 5 mg PO BID 10/23/21 05/10/22 History felodipine 5 mg tablet,extended 5 mg PO DAILY 10/23/21 05/10/22 History release 24 hr fenofibrate nanocrystallized 48 mg 48 mg PO DAILY 10/23/21 05/10/22 History tablet finasteride 5 mg tablet 5 mg PO DAILY 10/23/21 05/10/22 History propranolol 160 mg capsule,24 160 mg PO DAILY 10/23/21 05/10/22 History hr,extended release selenium 100 mcg tablet 100 mcg PO DAILY 10/23/21 05/10/22 History sertraline 50 mg tablet 100 mg PO BID 10/23/21 05/10/22 History tamsulosin 0.4 mg capsule 0.4 mg PO HS 10/23/21 05/10/22 History trazodone 50 mg tablet 50 mg PO HS PRN Pain 10/23/21 05/10/22 History potassium chloride 20 mEq oral 20 meq PO DAILY #30 ea 10/24/21 05/10/22 Rx packet (Klor-Con) magnesium oxide 250 mg PO BID 05/10/22 05/10/22 History mirtazapine 7.5 mg tabl
[2022-05-10 01:50] LABS: SARS-CoV-2 RNA PCR Negative
--- NOTE | 2022-05-10 02:24 | ADMGEN ---
This patient, Ezra Arias, was admitted to [facility] Room 323-01. Patient/family oriented to hospital policies and general routines including ID bracelet, bed and alarms, visiting hours, pain management, procedures, bathroom and other care routines, personal items, smoking policy, room service/diet, and visiting hours. Information on how to activate the Rapid Response Team has been discussed. Patient/Family are encouraged to report perceived risks to care and to ask questions if they do not understand what they are told or what they should do.
--- NOTE | 2022-05-10 08:07 | ECG_ITS ---
Measurements Intervals [place] Rate: 71 P: 262 AR: 171 QRS: -2 QRSD: 113 T: 53 QT: 417 QTc: 456 Interpretive Statements SINUS RHYTHM POSSIBLE SEPTAL MYOCARDIAL INFARCTION , OF INDETERMINATE AGE [40+ ms Q WAVE IN V1/V2] INFERIOR MYOCARDIAL INFARCTION , PROBABLY OLD [40+ ms Q WAVE AND/OR ST/T ABNORMALITY IN II/aVF] COMPARED TO ECG 05/09/2022 22:02:39 NO SIGNIFICANT DIFFERENCE Electronically Signed On 05-10-2022 10:25:55 CDT by Dipak Robertson M.D.
--- NOTE | 2022-05-10 08:37 | PC.NURSE ---
I received a call from the lab stating that pt was combative and refused to allow blood to be drawn. I contacted the hospitalist, Bette Hong, to make her aware of pt's ongoing belligerence and the lab's inability to draw blood. The hospitalist stated that she would be putting in new orders to address the situation.
[2022-05-10] MEDS: HALOPERIDOL LACTATE 5 MG/ML VIAL IM ×2 (08:53→14:06)
[2022-05-10] MEDS: LACTATED RINGERS 1,000 ML 75 ML IV CONT (08:53)
--- NOTE | 2022-05-10 10:55 | PC.NURSE ---
I received a call from pt's son/POA, Jensen Arias, wanting an update on pt's condition. I answered all of his questions. Jensen also provided more background and information regarding pt's medical history including but not limited to the primary care provider informing pt/family that pt has dementia and started pt on routine Alzheimer's medication protocols several years ago. Jensen also explained that pt has a history of being combative and belligerent and suffers from anxiety especially in new environments or with any change in routine for quite some time. Jensen provided permission to conduct an MRI as well as encouraging us to provide pt with medication to calm him. Finally, Jensen stated that under no circumstances does he want pt to receive Seroquel as Jensen believes it has too many detrimental side effects. All of this information was given to the hospitalist.
[2022-05-10 11:36] LABS: Potassium 3.2 mmol/L (3.4-5.0)
[2022-05-10 12:49] LABS: Folic Acid 15.7 ng/mL (2.76->20)
[2022-05-10] MEDS: POTASSIUM CHLORIDE INJ 40 MEQ in SODIUM CHLORIDE 0.9% IV 500 ML 130 MEQ IVPB (14:01)
--- NOTE | 2022-05-10 15:39 | PM.IMPN ---
Progress Note: A&P Assessment and Plan (1) Altered mental status: Code(s): R41.82 - Altered mental status, unspecified Status: Acute Assessment and Plan: Patient with h/o dementia. Acute behavioral change and confusion, per family. Patient lives alone and may not have been taking medications. +combative with nursing staff and AO to self only. TSH within normal limits UA unremarkable B12 low with neuropsych changes reported by family. Stop oral supplement (unsure if patient was taking), give 1000 mcg IM daily x 7 days, then once weekly x1 mo, then monthly. MRI Brain with noted old infarcts and no acute changes noted. CT head with noted old infarcts and moderate small vessel disease. Glucose 131. May be delirium from low B12 versus progressive dementia with behavioral changes. continue Donepezil. Consider adding Namenda if no alternative, reversible source found. Haldol IM PRN agitation. Continue Remeron at HS. Will give 1 liter LR at gentle rate as BUN and creatinine are slightly increased from baseline and he may have underlying dehydration. Consult PT/OT and care coordination for placement. (2) Hypokalemia: Code(s): E87.6 - Hypokalemia Status: Acute Assessment and Plan: K 3.0, he received 40 mEQ PO upon admission. Give 40 mEQ IVPB x1, continue LR as above and resume home potassium dose. Repeat BMP tomorrow. (3) Falls frequently: Code(s): R29.6 - Repeated falls Status: Acute Assessment and Plan: Consult PT/OT (4) Hypertension: Code(s): I10 - Essential (primary) hypertension Status: Chronic Assessment and Plan: BP slightly elevated. May be from missing doses of his BP medications, as well as agitation. continue Plendil, finasteride, and propranolol. (5) Dementia: Code(s): F03.90 - Unspecified dementia without behavioral disturbance Status: Chronic Assessment and Plan: Continue donepezil. Family may need continued education on disease course, as well as caregiver training/support. (6) Benign prostatic hyperplasia: Code(s): N40.0 - Benign prostatic hyperplasia without lower urinary tract symptoms Status: Chronic Assessment and Plan: Continue finasteride and tamulosin. Plan CODE STATUS: FULL CODE Disposition: patient will likely need SNF placement. Time Spent With Patient Time with patient: 25 - 35 minutes Subjective Date/time seen: 05/10/22 15:39 Patient is an 87 yo male with history of dementia, HTN and prior ischemic stroke. He presented to the ED from home for evaluation of altered mental status. The patient reportedly was found at home confused, combative and not wearing pants. Today, patient was found lying in bed, sleeping. He arouses to voice and pain, but does not answer most questions. Nursing reports the patient was combative overnight and with laboratory worker this morning. He has pulled out multiple IVs and refused medications. Ativan was given in ED and upon admission with minimal improvement. He was given IM Haldol x1 prior to my evaluation. Nursing also reports the patient's son does not want the patient to have Seroquel as he thinks it is a dangerous drug. Review of Systems Review of Systems: ROS unobtainable: Yes unobtainable due to mental status Exam Narrative: General: No acute distress.? Lying in bed. Mental Status/Psych: Lethargic, opens eyes to touch. Irritable and combative at times. Clear speech. Does not follow most commands. Skin: Skin fair, warm, and dry without rashes or lesions. HEENT: Normocephalic. Sclera is non-icteric. PERRL 1.5 mm sluggish. Oral mucosa moist. Hearing grossly intact. Neck: Supple. No JVD. Heart: S1 and S2 regular rate and rhythm. No murmurs, gallops, or rubs auscultated. Chest: RR unlabored at rest. Lung sounds are clear to auscultation in all lobes bilaterally without wheezes, rhonchi, or rales. Abdomen
--- NOTE | 2022-05-10 20:14 | PHAR ---
PT'S HOME MED PROPRANOLOL ER 160 MG CAPSULE VERIFIED BY PHARMACY
[2022-05-10] MEDS: TAMSULOSIN HCL 0.4 MG CAPSULE PO (20:40)
[2022-05-10] MEDS: MIRTAZAPINE 7.5 MG TABLET PO (20:41)
[2022-05-10] MEDS: traZODone HCL 50 MG TABLET PO (20:42)
[2022-05-11 06:58] VITALS: BP 159/95; PULSE 69; RESP 18; TEMP 36.1; O2SAT 100
--- NOTE | 2022-05-11 08:53 | PM.IMPN ---
Progress Note: A&P Assessment and Plan (1) Altered mental status: Code(s): R41.82 - Altered mental status, unspecified Status: Acute Assessment and Plan: Patient with h/o dementia. Acute behavioral change and confusion, per family. Patient lives alone and may not have been taking medications. +combative with nursing staff and AO to self only. TSH within normal limits UA unremarkable B12 low with neuropsych changes reported by family. Stop oral supplement (unsure if patient was taking), give 1000 mcg IM daily x 7 days, then once weekly x1 mo, then monthly. MRI Brain with noted old infarcts and no acute changes noted. CT head with noted old infarcts and moderate small vessel disease. Glucose 131. May be delirium from low B12 versus progressive dementia with behavioral changes. continue Donepezil. Consider adding Namenda if no alternative, reversible source found. Haldol IM PRN agitation. Continue Remeron at HS. Will give 1 liter LR at gentle rate as BUN and creatinine are slightly increased from baseline and he may have underlying dehydration. Consult PT/OT and care coordination for placement. stable (2) Hypokalemia: Code(s): E87.6 - Hypokalemia Status: Acute Assessment and Plan: K 3.0, he received 40 mEQ PO upon admission. Give 40 mEQ IVPB x1, continue LR as above and resume home potassium dose. Repeat BMP tomorrow. monitor (3) Falls frequently: Code(s): R29.6 - Repeated falls Status: Acute Assessment and Plan: Consult PT/OT patient did endorse frequent falls at home and has had previous episodes of chest pain. Patient refused any additional lab work. He was agreeable to an echocardiogram. (4) Hypertension: Code(s): I10 - Essential (primary) hypertension Status: Chronic Assessment and Plan: BP slightly elevated. May be from missing doses of his BP medications, as well as agitation. continue Plendil, finasteride, and propranolol. (5) Dementia: Code(s): F03.90 - Unspecified dementia without behavioral disturbance Status: Chronic Assessment and Plan: Continue donepezil. Family may need continued education on disease course, as well as caregiver training/support. (6) Benign prostatic hyperplasia: Code(s): N40.0 - Benign prostatic hyperplasia without lower urinary tract symptoms Status: Chronic Assessment and Plan: Continue finasteride and tamulosin. Plan CODE STATUS: FULL CODE Disposition: patient will likely need SNF placement, However family refusal at this time. Subjective Date/time seen: 05/11/22 08:53 patient has various complaints this morning. Patient has complained of the food, bed, facility. Patient was able to report he does not want it anymore IV sticks to check blood or trend labs. Patient was agreeable to an echocardiogram this morning. I did have a DN depth discussion with the patient concerning for his possible chest pain that he experienced prior to coming to the hospital. Patient was willing to do an echocardiogram but refused any additional lab. Patient appears intermittently confused and agitated with nursing staff. Family has been notified of the patient's labile mental status. Patient is from home, it is the hope of the family the patient will return home. However the patient may be a poor candidate to returning home. 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 His daughter is willing to stay with him when he is discharged. Patient will have an echocardiogram performed today. patient should be discharged later on in the week. Review of Systems Review of Systems: ROS unobtainable: Yes unobtainable due to mental status Exam Narrative: General: No acute distress. may have intermittent episodes of irritability Mental Status: Awake, alert and oriented to person, place, and disoriented to time with clear speech. Skin: Skin i
[2022-05-11] MEDS: POTASSIUM CHLORIDE 20 MEQ PACKET (FOR LIQUID) PO (09:32)
[2022-05-11] MEDS: FINASTERIDE 5 MG TABLET PO (09:32)
[2022-05-11] MEDS: CYANOCOBALAMIN INJ 1,000 MCG/ML VIAL 1000 MCG IM (09:32)
[2022-05-11] MEDS: SERTRALINE HCL 50 MG TABLET 100 MG PO ×2 (09:32→17:10)
[2022-05-11] MEDS: ENOXAPARIN 40 MG/0.4 ML SYRINGE SUB-Q (09:32)
[2022-05-11] MEDS: CHOLECALCIFEROL 1,000 UNITS TABLET 2000 UNITS PO (09:33)
[2022-05-11] MEDS: allopurinoL 300 MG TABLET PO (09:33)
[2022-05-11] MEDS: FELODIPINE 5 MG TAB CR PO (09:33)
[2022-05-11] MEDS: DONEPEZIL HCL 5 MG TABLET PO ×2 (09:33→17:10)
[2022-05-11] MEDS: FENOFIBRATE,MICRONIZED 48 MG TABLET PO (09:33)
--- NOTE | 2022-05-11 12:19 | PC.NURSE ---
I received a message that pt's son called asking to speak with me. I attempted to return the call but there was no answer. I left a message.
--- NOTE | 2022-05-11 13:00 | ECHO_ITS ---
Patient Info Name: Ezra rAias Age: 87 years : 1935 Gender: Male Ht: 71 in Wt: 160 lbs BSA: 1.91 m2 HR: 61 bpm BP: 159 / 95 mmHg Heart Rhythm: Sinus Rhythm Exam Date: 05/11/2022 1:43 PM Exam Location: [facility] Patient Status: Inpatient Admit Date: 05/10/2022 Staff Ordering Physician: Melissa Waller APRN Ferryboat Operator: Aidan Samano RDCS Attending Provider: Erin Sarah MD Referring Physician: Sridhar ALONSO; Exam Type: CA echo doppler color flow Study Info Indications R06.02 - Shortness of breath Complete two-dimensional, color flow and Doppler transthoracic echocardiogram is performed. Summary 1. Complete two-dimensional, color flow and Doppler transthoracic echocardiogram is performed. 2. Technically difficult study with limited views. 3. Left ventricular chamber dimension is normal. 4. Left ventricular systolic function is normal, estimated at 55-60%. 5. There is moderately increased left ventricular wall thickness. 6. The left ventricular diastolic function is grade I diastolic dysfunction. 7. There is trace mitral valve regurgitation. Left Ventricle Left ventricular chamber dimension is normal. Left ventricular systolic function is normal, estimated at 55-60%. There is moderately increased left ventricular wall thickness. The left ventricular diastolic function is grade I diastolic dysfunction. Technically difficult study with limited views. Right Ventricle Right ventricular chamber dimension is normal. Right ventricular systolic function is normal. Left Atria Left atrial chamber dimension is mildly enlarged. Right Atria Right atrial chamber dimension is normal. Aortic Valve The aortic valve is probable trileaflet. There is no aortic valve stenosis. There is trace aortic valve regurgitation. There is mild aortic valve calcification. Pulmonic Valve The pulmonic valve is not well visualized. There is trace pulmonic regurgitation. Mitral Valve The mitral valve has normal leaflets. There is trace mitral valve regurgitation. The mitral valve annulus is mildly calcified. Tricuspid Valve The tricuspid valve leaflets are normal. There is mild tricuspid valve regurgitation. Unable to estimate PA systolic pressure due to poor spectral resolution of tricuspid regurgitant jet velocity. Pericardium/Pleural The pericardium appears epicardial fat pad. There is trivial pericardial effusion. Aorta The aortic root size at the sinus of Valsalva is mildly dilated at 4.[address] chest if clinically indicated.. Left Ventricular Outflow Tract Name Value Normal LVOT 2D LVOT Diameter 2.3 cm LVOT Doppler LVOT Peak Gradient 2 mmHg LVOT Mean Gradient 2 mmHg LVOT VTI 15 cm LVOT VTI/AV VTI Ratio 0.8 LVOT Stroke Volume 65 ml LVOT CO 4.0 l/min LVOT CI 2.1 l/min/m2 Mitral Valve
[2022-05-11 14:00] VITALS: BP 106/63; PULSE 61; RESP 20; TEMP 36.8; O2SAT 99
[2022-05-11 14:09] LABS: Hemoglobin 14.1 g/dL (14.0-18.0); Mean Corpuscular HGB Conc 32.8 g/dl (32-36); Mean Corpuscular Hemoglobin 28.3 pg (26-34); Mean Corpuscular Volume 86.3 fl (80-100); Mean Platelet Volume 10.2 fl (7.4-10.4); Platelet Count Result 192 k/mm3 (150-375); Red Blood Count 4.98 M/mm3 (4.6-6.20); White Blood Count 6.4 K/mm3 (4.5-10.0)
[2022-05-11 14:22] LABS: Anion Gap 7 mmol/L (8-16); Blood Urea Nitrogen 14 mg/dL (9-20); Calcium 9.1 mg/dL (8.4-10.2); Carbon Dioxide 28 mmol/L (22-30); Chloride 104 mmol/L (98-107); Estimated CRCL calculation 59 ml/min; Estimated Glomerular Filt Rate > 60; Glucose 129 mg/dL (65-110); Potassium 3.7 mmol/L (3.4-5.0); Sodium 139 mmol/L (137-145)
--- NOTE | 2022-05-11 15:01 | PCPTNOTE ---
Attempted physical therapy initial evaluation, Pt was receiving an echo at 1325. Will continue to follow.
[2022-05-11] MEDS: traZODone HCL 50 MG TABLET PO (20:40)
[2022-05-11] MEDS: MIRTAZAPINE 7.5 MG TABLET PO (20:40)
[2022-05-11] MEDS: TAMSULOSIN HCL 0.4 MG CAPSULE PO (20:40)
[2022-05-11 22:00] VITALS: BP 155/87; PULSE 57; RESP 20; TEMP 36.6; O2SAT 100
--- NOTE | 2022-05-12 07:05 | PM.DS ---
DS: Discharge Diagnosis Discharge Diagnosis (1) Altered mental status: Code(s): R41.82 - Altered mental status, unspecified Status: Acute Assessment and Plan: Patient with h/o dementia. Acute behavioral change and confusion, per family. Patient lives alone and may not have been taking medications. +combative with nursing staff and AO to self only. TSH within normal limits UA unremarkable B12 low with neuropsych changes reported by family. Stop oral supplement (unsure if patient was taking), give 1000 mcg IM daily x 7 days, then once weekly x1 mo, then monthly. MRI Brain with noted old infarcts and no acute changes noted. CT head with noted old infarcts and moderate small vessel disease. Glucose 131. May be delirium from low B12 versus progressive dementia with behavioral changes. continue Donepezil. Consider adding Namenda if no alternative, reversible source found. Haldol IM PRN agitation. Continue Remeron at HS. Will give 1 liter LR at gentle rate as BUN and creatinine are slightly increased from baseline and he may have underlying dehydration. Consult PT/OT and care coordination for placement. stable (2) Hypokalemia: Code(s): E87.6 - Hypokalemia Status: Acute Assessment and Plan: K 3.0, he received 40 mEQ PO upon admission. Give 40 mEQ IVPB x1, continue LR as above and resume home potassium dose. Repeat BMP tomorrow. monitor (3) Falls frequently: Code(s): R29.6 - Repeated falls Status: Acute Assessment and Plan: Consult PT/OT patient did endorse frequent falls at home and has had previous episodes of chest pain. Patient refused any additional lab work. He was agreeable to an echocardiogram. (4) Hypertension: Code(s): I10 - Essential (primary) hypertension Status: Chronic Assessment and Plan: BP slightly elevated. May be from missing doses of his BP medications, as well as agitation. continue Plendil, finasteride, and propranolol. (5) Dementia: Code(s): F03.90 - Unspecified dementia without behavioral disturbance Status: Chronic Assessment and Plan: Continue donepezil. Family may need continued education on disease course, as well as caregiver training/support. (6) Benign prostatic hyperplasia: Code(s): N40.0 - Benign prostatic hyperplasia without lower urinary tract symptoms Status: Chronic Assessment and Plan: Continue finasteride and tamulosin. Plan CODE STATUS: FULL CODE Disposition: patient will likely need SNF placement, However family refusal at this time. DS: Summary Time Spent with Patient Time attestation: Total time spent providing and/or coordinating discharge services: Exam Narrative: General: No acute distress. may have intermittent episodes of irritability Mental Status: Awake, alert and oriented to person, place, and disoriented to time with clear speech. Skin: Skin in warm, dry and intact without rashes or lesions. Head: Normocephalic and atraumatic. Eyes: Conjunctivae are clear without exudates or hemorrhage. Sclera is non-icteric. EOM are intact, PERRLA. Ears: The external ear and canal are non-tender and without swelling or discharge. Nose: Nasal mucosa is pink and moist. Septum midline. Nares patent bilaterally. Throat: Oral mucosa pink and moist with good dentition. Tongue midline. Neck: The neck supple without adenopathy. Trachea midline. No JVD. Cardiac: S1 and S2 regular rate and rhythm. No murmurs, gallops, or rubs auscultated. Respiratory: Chest wall symmetric, nontender and without deformity or trauma. Respirations even and unlabored. Lung sounds are clear to auscultation in all lobes bilaterally without wheezes, rhonchi, or rales. Abdominal: Abdomen soft, round and non-tender to palpation. Bowel sounds present and normoactive in all 4 quadrants. Spine: Neck and back with grossly normal curvature, no deformity in ap
[2022-05-12 08:00] VITALS: BP 154/78; PULSE 57; PULSE 70; RESP 20; O2SAT 100
[2022-05-12 08:01] VITALS: BP 154/78; PULSE 70
[2022-05-12] MEDS: allopurinoL 300 MG TABLET PO (08:01)
[2022-05-12] MEDS: SERTRALINE HCL 50 MG TABLET 100 MG PO ×2 (08:01→16:00)
[2022-05-12] MEDS: ENOXAPARIN 40 MG/0.4 ML SYRINGE SUB-Q (08:01)
[2022-05-12] MEDS: FELODIPINE 5 MG TAB CR PO (08:01)
[2022-05-12] MEDS: FINASTERIDE 5 MG TABLET PO (08:01)
[2022-05-12] MEDS: CHOLECALCIFEROL 1,000 UNITS TABLET 2000 UNITS PO (08:01)
[2022-05-12] MEDS: DONEPEZIL HCL 5 MG TABLET PO ×2 (08:02→16:01)
[2022-05-12] MEDS: POTASSIUM CHLORIDE 20 MEQ PACKET (FOR LIQUID) PO (08:02)
[2022-05-12] MEDS: FENOFIBRATE,MICRONIZED 48 MG TABLET PO (08:02)
[2022-05-12] MEDS: CYANOCOBALAMIN INJ 1,000 MCG/ML VIAL 1000 MCG IM (08:04)
--- NOTE | 2022-05-12 11:15 | PM.IMPN ---
Progress Note: A&P Assessment and Plan (1) Altered mental status: Code(s): R41.82 - Altered mental status, unspecified Status: Acute Assessment and Plan: Patient with h/o dementia. Acute behavioral change and confusion, per family. Patient lives alone and may not have been taking medications. +combative with nursing staff and AO to self only. TSH within normal limits UA unremarkable MRI Brain with noted old infarcts and no acute changes noted. CT head with noted old infarcts and moderate small vessel disease. Glucose 131. continue Donepezil. Consider adding Namenda if no alternative, reversible source found. Haldol IM PRN agitation. Continue Remeron at HS. Consult PT/OT and care coordination for placement. stable (2) Hypokalemia: Code(s): E87.6 - Hypokalemia Status: Acute Assessment and Plan: Continue to monitor serum electrolytes (3) Falls frequently: Code(s): R29.6 - Repeated falls Status: Acute Assessment and Plan: Consult PT/OT patient did endorse frequent falls at home and has had previous episodes of chest pain. Patient refused any additional lab work. He was agreeable to an echocardiogram. (4) Hypertension: Code(s): I10 - Essential (primary) hypertension Status: Chronic Assessment and Plan: BP slightly elevated. May be from missing doses of his BP medications, as well as agitation. continue Plendil, finasteride, and propranolol. (5) Dementia: Code(s): F03.90 - Unspecified dementia without behavioral disturbance Status: Chronic Assessment and Plan: Continue donepezil. Family may need continued education on disease course, as well as caregiver training/support. (6) Benign prostatic hyperplasia: Code(s): N40.0 - Benign prostatic hyperplasia without lower urinary tract symptoms Status: Chronic Assessment and Plan: Continue finasteride and tamulosin. Plan CODE STATUS: FULL CODE Disposition: patient will likely need SNF placement, However family refusal at this time. Subjective Date/time seen: 05/12/22 11:15 Patient very pleasant this morning. His discussion about plan of care. Echocardiogram Pending. Patient denies any active chest pain within the hospital. He is able to work with physical therapy this morning. Patient would benefit from a shelter facility. He needs repeated cues to perform tasks. will have another discussion with family about possible placement. Review of Systems Review of Systems: All systems reviewed & are unremarkable except as noted in HPI and below Exam Narrative: General: No acute distress. may have intermittent episodes of irritability Mental Status: Awake, alert and oriented to person, place, and disoriented to time with clear speech. Skin: Skin in warm, dry and intact without rashes or lesions. Head: Normocephalic and atraumatic. Eyes: Conjunctivae are clear without exudates or hemorrhage. Sclera is non-icteric. EOM are intact, PERRLA. Ears: The external ear and canal are non-tender and without swelling or discharge. Nose: Nasal mucosa is pink and moist. Septum midline. Nares patent bilaterally. Throat: Oral mucosa pink and moist with good dentition. Tongue midline. Neck: The neck supple without adenopathy. Trachea midline. No JVD. Cardiac: S1 and S2 regular rate and rhythm. No murmurs, gallops, or rubs auscultated. Respiratory: Chest wall symmetric, nontender and without deformity or trauma. Respirations even and unlabored. Lung sounds are clear to auscultation in all lobes bilaterally without wheezes, rhonchi, or rales. Abdominal: Abdomen soft, round and non-tender to palpation. Bowel sounds present and normoactive in all 4 quadrants. Spine: Neck and back with grossly normal curvature, no deformity in appearance or signs of trauma. Extremities: Upper and lower extremities atraumatic without tenderness or
[2022-05-12 22:00] VITALS: BP 141/72; PULSE 62; RESP 18; TEMP 36.6; O2SAT 96
[2022-05-12] MEDS: TAMSULOSIN HCL 0.4 MG CAPSULE PO (22:35)
[2022-05-12] MEDS: MIRTAZAPINE 7.5 MG TABLET PO (22:35)
[2022-05-13 05:51] VITALS: BP 165/81; PULSE 58; RESP 18; TEMP 36.9; O2SAT 98
[2022-05-13] MEDS: SERTRALINE HCL 50 MG TABLET 100 MG PO ×2 (09:11→17:22)
[2022-05-13] MEDS: CHOLECALCIFEROL 1,000 UNITS TABLET 2000 UNITS PO (09:11)
[2022-05-13] MEDS: allopurinoL 300 MG TABLET PO (09:11)
[2022-05-13] MEDS: FENOFIBRATE,MICRONIZED 48 MG TABLET PO (09:11)
[2022-05-13] MEDS: FINASTERIDE 5 MG TABLET PO (09:11)
[2022-05-13] MEDS: FELODIPINE 5 MG TAB CR PO (09:11)
[2022-05-13] MEDS: DONEPEZIL HCL 5 MG TABLET PO ×2 (09:12→17:22)
[2022-05-13] MEDS: POTASSIUM CHLORIDE 20 MEQ PACKET (FOR LIQUID) PO (09:13)
--- NOTE | 2022-05-13 13:02 | PM.IMPN ---
Progress Note: A&P Assessment and Plan (1) Altered mental status: Code(s): R41.82 - Altered mental status, unspecified Status: Acute Assessment and Plan: Patient with h/o dementia. Acute behavioral change and confusion, per family. Patient lives alone and may not have been taking medications. TSH within normal limits UA unremarkable MRI Brain with noted old infarcts and no acute changes noted. CT head with noted old infarcts and moderate small vessel disease. No hypoglycemia noted. continue Donepezil for underlying dementia. Haldol IM PRN agitation. No Haldol given in 48 hours. Continue Remeron at HS. PT/OT eval and treat. Care coordination for SNF placement. Improving and appears at baseline. (2) Falls frequently: Code(s): R29.6 - Repeated falls Status: Acute Assessment and Plan: PT/OT as above. Fall precautions. (3) Hypokalemia: Code(s): E87.6 - Hypokalemia Status: Acute Assessment and Plan: Resolved. Continue oral supplementation. (4) Dementia: Code(s): F03.90 - Unspecified dementia without behavioral disturbance Status: Chronic Assessment and Plan: Continue donepezil. (5) Hypertension: Code(s): I10 - Essential (primary) hypertension Status: Chronic Assessment and Plan: Continue Plendil, finasteride, and propranolol XL (6) Benign prostatic hyperplasia: Code(s): N40.0 - Benign prostatic hyperplasia without lower urinary tract symptoms Status: Chronic Assessment and Plan: Continue finasteride and tamulosin. Plan Disposition: Awaiting SNF authorization. CODE STATUS: FULL CODE Time Spent With Patient Time with patient: 15 - 25 minutes Subjective Date/time seen: 05/13/22 13:02 Interval history: Patient is an 87 yo male with history of dementia, HTN and prior ischemic stroke. He presented to the ED from home for evaluation of altered mental status. The patient reportedly was found at home confused, combative and not wearing pants. Patient sleeping, but arouses to voice. He is very COMANCHE. Nursing reports he refused Lovenox injection and was irritable when nursing stayed to watch him take his morning medications. He reports chronic neck and lower back pain, but does not take any medications at home for this and is refusing need for medications for me. Review of Systems Review of Systems: All systems reviewed & are unremarkable except as noted in HPI and below Exam Narrative: General: No acute distress.? Lying in bed. Mental Status/Psych: Sleeping. Arouses to voice. Oriented to person, hospital, month and year. Forgetful of day of the week. Irritable mood. Cooperative with examination. Clear speech. Skin: Skin fair, warm, and dry without rashes or lesions. HEENT: Normocephalic. Sclera is non-icteric. PERRL. Oral mucosa moist. Very COMANCHE. Neck: Supple. No JVD. Heart: S1 and S2 regular rate and rhythm. No murmurs, gallops, or rubs auscultated. Chest: RR unlabored at rest. Lung sounds are clear to auscultation in all lobes bilaterally without wheezes, rhonchi, or rales. Poor inspiratory effort. Abdomen: Soft, round and non-tender to palpation.? Bowel sounds present in all 4 quadrants. No guarding or grimacing. Extremities:?? Grossly normal ROM all extremities equally. No edema. Radial pulses +2 bilaterally and dorsalis pedis pulses diminished but palpable and equal bilaterally. Neurological: No focal deficits. Generalized weakness 4/5 all extremities. Cranial nerves 2-12 grossly intact. Objective Data Vital Signs Vital Signs: Vital Signs - 24 hr 05/12/22 22:00 05/13/22 05:51 Temperature 97.9 F 98.4 F Pulse Rate 62 58 L Respiratory Rate 18 18 Blood Pressure 141/72 H 165/81 H Pulse Oximetry 96 98 Intake/Output Intake/Output: Intake & Output 05/10/22 05/11/22 05/12/22 05/13/22 23:59 23:59 23:59 23:59 Intake Total 1520 960 480 620 Balance
[2022-05-13 14:00] VITALS: BP 108/58; PULSE 50; RESP 14; TEMP 36.2; O2SAT 98
[2022-05-13] MEDS: TAMSULOSIN HCL 0.4 MG CAPSULE PO (21:28)
[2022-05-13] MEDS: MIRTAZAPINE 7.5 MG TABLET PO (21:28)
[2022-05-13 22:00] VITALS: BP 118/60; PULSE 54; RESP 18; TEMP 36.9; O2SAT 97
[2022-05-14 06:00] VITALS: BP 163/80; PULSE 62; RESP 16; TEMP 36.4; O2SAT 100
[2022-05-14 06:57] LABS: Hematocrit 41.6 % (42.0-52.0); Hemoglobin 13.9 g/dL (14.0-18.0); Mean Corpuscular HGB Conc 33.4 g/dl (32-36); Mean Corpuscular Hemoglobin 28.8 pg (26-34); Mean Corpuscular Volume 86.1 fl (80-100); Mean Platelet Volume 10.7 fl (7.4-10.4); Platelet Count Result 187 k/mm3 (150-375); Red Blood Count 4.83 M/mm3 (4.6-6.20); Red Cell Distribution Width 13.7 % (11.5-14.5); White Blood Count 6.1 K/mm3 (4.5-10.0)
[2022-05-14 07:11] LABS: Anion Gap 9 mmol/L (8-16); Blood Urea Nitrogen 19 mg/dL (9-20); Calcium 8.4 mg/dL (8.4-10.2); Carbon Dioxide 29 mmol/L (22-30); Chloride 103 mmol/L (98-107); Estimated CRCL calculation 53 ml/min; Estimated Glomerular Filt Rate > 60; Glucose 99 mg/dL (65-110); Magnesium 1.8 mg/dL (1.6-2.3); Potassium 3.1 mmol/L (3.4-5.0); Sodium 141 mmol/L (137-145)
[2022-05-14] MEDS: DONEPEZIL HCL 5 MG TABLET PO ×2 (08:36→16:26)
[2022-05-14] MEDS: SERTRALINE HCL 50 MG TABLET 100 MG PO ×2 (08:37→16:25)
[2022-05-14] MEDS: CYANOCOBALAMIN 1,000 MCG TABLET 1000 MCG PO (08:37)
[2022-05-14] MEDS: FELODIPINE 5 MG TAB CR PO (09:54)
[2022-05-14] MEDS: CHOLECALCIFEROL 1,000 UNITS TABLET 2000 UNITS PO (09:54)
[2022-05-14] MEDS: FINASTERIDE 5 MG TABLET PO (09:55)
[2022-05-14] MEDS: FENOFIBRATE,MICRONIZED 48 MG TABLET PO (09:55)
[2022-05-14] MEDS: POTASSIUM CHLORIDE 20 MEQ PACKET (FOR LIQUID) 40 MEQ PO (09:55)
[2022-05-14] MEDS: allopurinoL 300 MG TABLET PO (09:55)
[2022-05-14 13:39] VITALS: BP 152/76; PULSE 56; RESP 16; TEMP 36.5; O2SAT 98
--- NOTE | 2022-05-14 15:02 | PM.IMPN ---
Progress Note: A&P Assessment and Plan (1) Altered mental status: Code(s): R41.82 - Altered mental status, unspecified Status: Acute Assessment and Plan: Patient with h/o dementia. Acute behavioral change and confusion, per family. Patient lives alone and may not have been taking medications. TSH within normal limits UA unremarkable MRI Brain with noted old infarcts and no acute changes noted. CT head with noted old infarcts and moderate small vessel disease. No hypoglycemia noted. continue Donepezil for underlying dementia. Haldol IM PRN agitation. No Haldol given in 48 hours. Continue Remeron at HS. PT/OT eval and treat. Care coordination for SNF placement. Improving and appears at baseline. 05/13/22 Unchanged. (2) Falls frequently: Code(s): R29.6 - Repeated falls Status: Acute Assessment and Plan: PT/OT as above. Fall precautions. (3) Hypokalemia: Code(s): E87.6 - Hypokalemia Status: Acute Assessment and Plan: K3.1 today, increase oral potassium 40 mEQ PO daily. Repeat BMP tomorrow. (4) Dementia: Code(s): F03.90 - Unspecified dementia without behavioral disturbance Status: Chronic Assessment and Plan: Continue donepezil. Stable. (5) Hypertension: Code(s): I10 - Essential (primary) hypertension Status: Chronic Assessment and Plan: Continue Plendil, finasteride, and propranolol XL Stable. BP 108/58 to 163/80 (6) Benign prostatic hyperplasia: Code(s): N40.0 - Benign prostatic hyperplasia without lower urinary tract symptoms Status: Chronic Assessment and Plan: Continue finasteride and tamulosin. Stable. No urinary complaints. Plan Disposition: Awaiting SNF authorization. CODE STATUS: FULL CODE Time Spent With Patient Time with patient: 15 - 25 minutes Subjective Date/time seen: 05/14/22 15:02 Interval history: Patient is an 87 yo male with history of dementia, HTN and prior ischemic stroke. He presented to the ED from home for evaluation of altered mental status. The patient reportedly was found at home confused, combative and not wearing pants. He continues to complain of back and neck pain, but denies need for medications, patches or aspercreme. Nursing reports the patient has been pleasant and taking all his medications today. No overnight events. Review of Systems Review of Systems: All systems reviewed & are unremarkable except as noted in HPI and below Exam Narrative: General: No acute distress.? . Mental Status/Psych: Sleeping. Arouses to voice. Oriented to person, hospital, month and year. Forgetful. Neutral mood. Cooperative with examination. Clear and appropriate speech. Skin: Skin fair, warm, and dry without rashes or lesions. HEENT: Normocephalic. Sclera is non-icteric. PERRL. Oral mucosa moist. Very [place]. Neck: Supple. No JVD. Heart: S1 and S2 regular rate and rhythm. No murmurs, gallops, or rubs auscultated. Chest: RR unlabored at rest. Lung sounds are clear to auscultation in all lobes bilaterally without wheezes, rhonchi, or rales. Poor inspiratory effort. Abdomen: Soft, round and non-tender to palpation.? Bowel sounds present in all 4 quadrants. No guarding or grimacing. Extremities:?? Grossly normal ROM all extremities equally. No edema. Radial pulses +2 bilaterally and dorsalis pedis pulses diminished but palpable and equal bilaterally. Neurological: No focal deficits. Generalized weakness 4/5 all extremities. Cranial nerves 2-12 grossly intact. Objective Data Vital Signs Vital Signs: Vital Signs - 24 hr 05/13/22 20:10 05/13/22 22:00 05/14/22 06:00 Temperature 98.4 F 97.6 F Pulse Rate 54 L 62 Respiratory Rate 18 16 Blood Pressure 118/60 163/80 H Pulse Oximetry 97 100 Oxygen Delivery Room Air 05/14/22 13:39 Temperature 97.7 F Pulse Rate 56 L Respiratory Rate 16 Blood Pressure 152/76 H Pulse Oximet
[2022-05-14 20:20] VITALS: PULSE 64; RESP 18; O2SAT 94
[2022-05-14 20:35] VITALS: BP 220/116; PULSE 64; RESP 18; TEMP 36.6; O2SAT 94
[2022-05-14] MEDS: hydrALAZINE HCL 20 MG/ML VIAL 10 MG IV PUSH ×2 (20:54→23:57)
[2022-05-14] MEDS: MIRTAZAPINE 7.5 MG TABLET PO (20:56)
[2022-05-14] MEDS: TAMSULOSIN HCL 0.4 MG CAPSULE PO (20:56)
[2022-05-14 23:32] VITALS: BP 186/82
[2022-05-14] MEDS: ONDANSETRON INJ 4 MG/2 ML VIAL IV PUSH (23:58)
[2022-05-15 06:00] VITALS: BP 150/90; PULSE 71; RESP 16; TEMP 36.9; O2SAT 98
--- NOTE | 2022-05-15 07:54 | PM.IMPN ---
Progress Note: A&P Assessment and Plan (1) Altered mental status: Code(s): R41.82 - Altered mental status, unspecified Status: Acute Assessment and Plan: Patient with h/o dementia. Acute behavioral change and confusion, per family. Patient lives alone and may not have been taking medications. TSH within normal limits UA unremarkable MRI Brain with noted old infarcts and no acute changes noted. CT head with noted old infarcts and moderate small vessel disease. No hypoglycemia noted. continue Donepezil for underlying dementia. Haldol IM PRN agitation. No Haldol given since the first day of admission. Continue Remeron at HS. PT/OT eval and treat. Care coordination for SNF placement. Improving and appears at baseline. 05/13/22 Unchanged. 05/15/22 No change. Nursing reports patient is more confused at night, but cooperative. (2) Falls frequently: Code(s): R29.6 - Repeated falls Status: Acute Assessment and Plan: PT/OT as above. Fall precautions. (3) Hypokalemia: Code(s): E87.6 - Hypokalemia Status: Acute Assessment and Plan: K3.2 today, Give additonal potassium 40 mEQ PO x1 for total 80 mEQ today. Repeat Potassium level tomorrow. (4) Dementia: Code(s): F03.90 - Unspecified dementia without behavioral disturbance Status: Chronic Assessment and Plan: Continue donepezil. Stable. (5) Hypertension: Code(s): I10 - Essential (primary) hypertension Status: Chronic Assessment and Plan: BP up to 220/116 last night requiring IV hydralazine 20 mg total. Increase plendil 10 mg daily, change finasteride to HS. Continue home dose propranolol. Add PRN hydralazine 10 mg IV Q6 hours SBP>160 or DBP>100 (6) Benign prostatic hyperplasia: Code(s): N40.0 - Benign prostatic hyperplasia without lower urinary tract symptoms Status: Chronic Assessment and Plan: Continue finasteride and tamulosin. Stable. No urinary complaints. Plan Disposition: Awaiting SNF authorization. Plan to discharge tomorrow to SNF. CODE STATUS: FULL CODE Additional Plan Add bowel regimen. KUB with normal gas bowel pattern. Time Spent With Patient Time with patient: 15 - 25 minutes Subjective Date/time seen: 05/15/22 07:54 Interval history: Patient is an 87 yo male with history of dementia, HTN and prior ischemic stroke. He presented to the ED from home for evaluation of altered mental status. The patient reportedly was found at home confused, combative and not wearing pants. He reports some abdominal pain and nausea. He reports multiple bowel movements, but does endorse straining. Review of Systems Review of Systems: All systems reviewed & are unremarkable except as noted in HPI and below Exam Narrative: General: No acute distress.? Mental Status/Psych: Awake. Oriented to person, hospital, and year. Forgetful. Neutral mood. Cooperative with examination. Clear and appropriate speech. Skin: Skin fair, warm, and dry without rashes or lesions. HEENT: Normocephalic. Sclera is non-icteric. PERRL. Oral mucosa moist. Very [place]. Neck: Supple. No JVD. Heart: S1 and S2 regular rate and rhythm. No murmurs, gallops, or rubs auscultated. Chest: RR unlabored at rest. Lung sounds are clear to auscultation in all lobes bilaterally without wheezes, rhonchi, or rales. Poor inspiratory effort. Abdomen: Soft, round and mildly diffuse tenderness to palpation.? Bowel sounds present in all 4 quadrants. No guarding or grimacing. Extremities:?? Grossly normal ROM all extremities equally. No edema. Radial pulses +2 bilaterally and dorsalis pedis pulses diminished but palpable and equal bilaterally. Neurological: No focal deficits. Generalized weakness 4/5 all extremities. Objective Data Vital Signs Vital Signs: Vital Signs - 24 hr 05/14/22 13:39 05/14/22 20:35 05/14/22 23:32 Temperature 97.7 F 98 F
[2022-05-15 08:22] LABS: Anion Gap 12 mmol/L (8-16); Blood Urea Nitrogen 13 mg/dL (9-20); Calcium 9.2 mg/dL (8.4-10.2); Carbon Dioxide 27 mmol/L (22-30); Chloride 95 mmol/L (98-107); Estimated CRCL calculation 77 ml/min; Estimated Glomerular Filt Rate > 60; Glucose 188 mg/dL (65-110); Potassium 3.2 mmol/L (3.4-5.0); Sodium 134 mmol/L (137-145)
[2022-05-15] MEDS: SERTRALINE HCL 50 MG TABLET 100 MG PO ×2 (09:12→17:14)
[2022-05-15] MEDS: FELODIPINE 5 MG TAB CR 10 MG PO (09:12)
[2022-05-15] MEDS: FENOFIBRATE,MICRONIZED 48 MG TABLET PO (09:14)
[2022-05-15] MEDS: DONEPEZIL HCL 5 MG TABLET PO ×2 (09:14→17:14)
[2022-05-15] MEDS: POTASSIUM CHLORIDE 20 MEQ PACKET (FOR LIQUID) 40 MEQ PO ×2 (09:14→13:24)
[2022-05-15] MEDS: CHOLECALCIFEROL 1,000 UNITS TABLET 2000 UNITS PO (09:14)
[2022-05-15] MEDS: allopurinoL 300 MG TABLET PO (09:14)
[2022-05-15] MEDS: CYANOCOBALAMIN 1,000 MCG TABLET 1000 MCG PO (09:15)
[2022-05-15 14:00] VITALS: BP 124/64; PULSE 77; RESP 16; TEMP 35.7; O2SAT 99
[2022-05-15] MEDS: FINASTERIDE 5 MG TABLET PO (20:03)
[2022-05-15] MEDS: SENNA/DOCUSATE SODIUM TABLET 1 TAB PO (20:03)
[2022-05-15] MEDS: MIRTAZAPINE 7.5 MG TABLET PO (20:03)
[2022-05-15] MEDS: TAMSULOSIN HCL 0.4 MG CAPSULE PO (20:03)
[2022-05-15 21:49] VITALS: BP 157/67; PULSE 67; RESP 18; TEMP 36.6; O2SAT 99
[2022-05-16 06:00] VITALS: BP 107/65; PULSE 61; RESP 18; TEMP 36.5; O2SAT 93
[2022-05-16] MEDS: allopurinoL 300 MG TABLET PO (10:08)
[2022-05-16] MEDS: CHOLECALCIFEROL 1,000 UNITS TABLET 2000 UNITS PO (10:08)
[2022-05-16] MEDS: FENOFIBRATE,MICRONIZED 48 MG TABLET PO (10:09)
[2022-05-16] MEDS: DONEPEZIL HCL 5 MG TABLET PO (10:09)
[2022-05-16] MEDS: FELODIPINE 5 MG TAB CR 10 MG PO (10:09)
[2022-05-16] MEDS: CYANOCOBALAMIN 1,000 MCG TABLET 1000 MCG PO (10:09)
[2022-05-16] MEDS: SERTRALINE HCL 50 MG TABLET 100 MG PO (10:10)
--- NOTE | 2022-05-16 10:34 | PC.NURSE ---
Patient refused to let financial underwriter give lovenox injection and drink potassium liquid. Patient did take medications crushed in apple sauce, but needed encouraged.
[2022-05-16 12:26] LABS: EDCOVIDSCREEN Negative (Negative)
--- NOTE | 2022-05-16 12:49 | PC.NURSE ---
Attempted to called Olya with Care Coordination at 1245. No answer. Will call again.
--- NOTE | 2022-05-16 13:37 | PM.DS ---
DS: Admitting Diagnosis Discharge Date 05/16/22 1421 Admitting Diagnosis Altered mental status Frequent falls DS: Discharge Diagnosis Discharge Diagnosis (1) Altered mental status: Qualifiers: Altered mental status type: delirium Qualified Code(s): R41.0 - Disorientation, unspecified Code(s): R41.82 - Altered mental status, unspecified Status: Acute (2) Falls frequently: Code(s): R29.6 - Repeated falls Status: Acute (3) Acute hypokalemia: Code(s): E87.6 - Hypokalemia Status: Acute (4) Dementia: Code(s): F03.90 - Unspecified dementia without behavioral disturbance Status: Chronic (5) Hypertension: Code(s): I10 - Essential (primary) hypertension Status: Chronic (6) Benign prostatic hyperplasia: Qualifiers: Lower urinary tract symptom presence: symptoms absent Qualified Code(s): N40.0 - Benign prostatic hyperplasia without lower urinary tract symptoms Code(s): N40.0 - Benign prostatic hyperplasia without lower urinary tract symptoms Status: Chronic DS: Summary Hospital Course Reason for hospitalization: Altered mental status Hospital Course: Ezra Arias is an 87-year-old male with past medical history significant for dementia, stroke, benign prostatic hyperplasia, and obstructive sleep apnea. He presented to the emergency room via EMS after he was found at home with no clothes on wondering around and a blank stare on his face. According to his son, the patient was seen the day before admission at around 5pm and he was his usual state of health. The patient lives on his own and is able to fix his own meals. His daughter lives 3 doors from him and checks in frequently.? Most of the history has been obtained upon reviewing medical records and speaking to emergency room physician and son. The patient was unable to give any medical history due to acute delirium and confusion. He was also restless and agitated.? Preliminary ED workup was been essentially nonrevealing.? Patient was admitted to the medical floor for further evaluation management and treatment. CT head was negative for acute changes. The patient intially required IV Ativan x2 and IM Haldol for agitation. He was aggressive with nursing staff and refusing blood work. MRI Brain was obtained and showed old infarcts to the right parietal lobe and right occipital lobe, as well as moderate, nonspecific cerebral white matter and pontine disease, suggestive of chronic small vessel disease. TSH was within normal limits and UA did not demonstrate acute infection. He was treated with 1 liter NS for concerns of dehydration. B12 level was 279 from morning labs and patient was thought to have not been taking his oral replacement. He was treated with 2 doses of IM 1000 mcg B12 supplement and then resumed on his home oral dose. The patient was noted to return to baseline cognitive status; he was AOx3 but forgetful and had worsening cognition later in the evening. Altered mental status was thought to be related to B12 deficiency with delirium, as well as presumed missed medications for chronic health conditions. Potassium level was 3.0 on admission. He was treated with oral powder replacement. Repeat potassium levels continued ot show K<3.5. He was changed to KCl 60 mEQ PO BID and repeat BMP and Magnesium level were ordered outpatient. Donepezil and Remeron were continued. His blood pressure was intermittently elevated. He was continued on Propranolol extended release and finasteride. Plendil was increased to 10 mg daily. PT/OT was consulted and recommended SNF rehab. Patient was discharged in stable condition. He will have follow up with PCP in 1-2 weeks. Status at Discharge Cognitive/behavioral status at discharge: AAOx3. Forgetful. Pleasant Functional status at discharge: uses cane/walker Overall status at discharge: patient is progressing back to baseline Time Spent with Patient T
== END 2022-05-16 15:40 | DRG 641 ==
LOC: ANHED 05-10 01:21 → ANH3MEDSUR 05-10 03:01
PROVIDERS: Nurse Practitioner Family; Admitting Provider Internal Medicine; Emergency Provider Emergency Medicine; Visit Provider Internal Medicine
DX: E53.8 Deficiency of other specified B group vitamins (principal); F05 Delirium due to known physiological condition; F03.90 Unspecified dementia, unspecified severity, without behavioral disturbance, psychotic disturbance, mood disturbance, and anxiety; E87.6 Hypokalemia; E86.0 Dehydration; I10 Essential (primary) hypertension; N40.0 Benign prostatic hyperplasia without lower urinary tract symptoms; Z91.14 Patient's other noncompliance with medication regimen; G47.33 Obstructive sleep apnea (adult) (pediatric); M10.9 Gout, unspecified; F41.9 Anxiety disorder, unspecified; R29.6 Repeated falls; Z20.822 Contact with and (suspected) exposure to COVID-19; Z87.891 Personal history of nicotine dependence; Z86.73 Personal history of transient ischemic attack (TIA), and cerebral infarction without residual deficits; Z85.828 Personal history of other malignant neoplasm of skin
CPT/HCPCS: 36415; 51701; 70450; 70551; 71045; 74018; 80048; 80053; 81001; 82607; 82746; 83735; 84132; 84443; 85025; 85027; 85610; 85730; 87426; 93005; 93306; 96361; 96365; 96366; 96372; 96374; 96375; 97110; 97116; 97161; 97165; 97530; 97535; 99285; A9270; C9803; G0378; J0360; J1630; J1650; J2060; J2405; J3420; J3480; J7040; J7120; U0003; U0005

== ENCOUNTER 2022-08-30 14:29 | Observation (INO) | payer MEDICARE, SELFPAY ==
--- NOTE | ~2022-08-30 | US_ITS ---
EXAMINATION: US carotid duplex BI DATE: 08/31/2022 09:17 INDICATION: Dizziness TECHNIQUE: Grayscale, color Doppler, and pulsed Doppler images of the cervical carotid arteries were obtained. The degree of vessel stenosis is placed in one of the following categories: normal, <50%, 5 0-69%, >=70% but less than near-occlusion, near-occlusion, or total occlusion. Note that percent sten osis relative to normal distal artery lumen diameter is indirectly measured from velocity measurement s as described by Bj, et al. Radiology 2003; 229:340-346. Notes: Normal: Peak systolic velocity <125 centimeters/sec and no plaque <50%. Peak systolic velocity <125 ( EDV <40; ICA/CCA PSV ratio <2.0; used these factors only a tandem lesions or low cardiac output or co ntralateral disease) 50-69 %: PSV 125-230 (EDV 40-100; ratio 2-4) >= 70% but less than near occlusion: PSV greater than 230 (EDV > 100; ratio> 4.0) Near Occlusion: PSV that is variable; markedly narrowed lumen Occlusion: Absent flow on color/spectral Doppler and no lumen on tsang scale. COMPARISON: None. FINDINGS: RIGHT: The right common carotid artery (CCA) peak systolic velocity (PSV) is 59 cm/s. The right internal car otid artery (ICA) PSV is 132 cm/s. The right ICA end-diastolic velocity (EDV) is 22 cm/s. The right I CA/CCA PSV ratio is 2.3. The external carotid artery (ECA) PSV is 219 cm/s. There is antegrade flow i n the right vertebral artery. LEFT: The left CCA PSV is 69 cm/s. The left ICA PSV is 90 cm/s. The left ICA EDV is 18 cm/s. The left ICA/C CA PSV ratio is 1.3. The ECA PSV is 124 cm/s. There is antegrade flow in the left vertebral artery. IMPRESSION: 1. 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 2. Less than 50% stenosis in the left internal carotid artery by sonographic criteria. Reviewed, dictated and finalized at location A. WAY LANDSCAPE ARCHITECT IMPRESSION: 1. 50-69% stenosis in the right internal carotid artery by sonographic criteria . 2. Less than 50% stenosis in the left internal carotid artery by sonographic cr iteria.
--- NOTE | ~2022-08-30 | XR_ITS ---
XR chest 1V portable 08/30/2022 15:15 Indication: CVA. Midsternal chest pain. History of hypertension. Procedure: AP portable chest Comparison: 05/10/2022 Findings: There is diffuse bilateral mixed interstitial and airspace disease of the mid and lower [place]. No pleural effusion. Cardiomegaly. No pneumothorax. Impression: 1: Extensive mixed interstitial and airspace disease of the mid and lower lungs which may reflect stephanie ma or pneumonia. Reviewed, dictated and finalized at location A. B/PRE VOCATIONAL COUNSELOR Impression: 1: Extensive mixed interstitial and airspace disease of the mid and lower lungs which may reflect edema or pneumonia.
--- NOTE | ~2022-08-30 | CT_ITS ---
EXAMINATION: CT brain wo con DATE: 08/30/2022 14:40 INDICATION: CVA. TECHNIQUE: Computed tomography (CT) of the head was performed without intravenous contrast. The dose- length product was 605.33 mGy-cm. Automated exposure control and iterative reconstruction technique w ere employed. COMPARISON: CT dated 05/09/2022 FINDINGS: Mild generalized atrophy. There are scattered moderate periventricular and subcortical whit e matter changes, most likely related to small vessel ischemic disease (microangiopathy). No ventricu lomegaly or midline shift. Basilar cisterns are patent. No acute hemorrhage, infarction, mass or mass effect. Paranasal sinuses and mastoids are pneumatized. No depressed skull fractures. IMPRESSION: 1. No acute intracranial abnormality. 2: Chronic age-related findings. As per stroke protocol, I called these results to emergency room, discussed with Dr. Itz shaw MD at 08/30/2022 14:47 [employer]ICAL [employer]ORDS LIBRARY PROFESSOR. Reviewed, dictated and finalized at location A. [employer]RARY PROFESSOR IMPRESSION: 1. No acute intracranial abnormality. 2: Chronic age-related findings. As per stroke protocol, I called these results to emergency room, discussed wit h Dr. Itz Laws MD at 08/30/2022 14:47 MEDICAL RECORDS LIBRARY PROFESSOR.
--- NOTE | ~2022-08-30 | MR_ITS ---
EXAMINATION: MR brain/brain stem wo/w con DATE: 08/31/2022 13:48 INDICATION: Transient ischemic attack. TECHNIQUE: Magnetic resonance imaging (MRI) of the brain and brainstem was performed without and with 16 mL MultiHance intravenous contrast. COMPARISON: Brain MRI 05/10/2022, head CT 08/30/2022 FINDINGS: There are scattered areas of nonspecific increased T2-weighted signal intensity in the cere bral white matter and shelly. There are old infarcts in right parietal lobe and right occipital lobe. T here is no intracranial hemorrhage, acute infarction, or abnormal intracranial mass lesion. The ventr icles are normal in size. The orbits are normal. There is mild mucosal thickening in the ethmoid sinu ses. The mastoid air cells are normal. IMPRESSION: 1. 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 2. Stable moderate nonspecific cerebral white matter disease and pontine disease, which likely repres ents chronic small vessel ischemic disease. Reviewed, dictated and finalized at location E. [employer] UNIT OPERATOR IMPRESSION: 1. 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 2. Stable moderate nonspecific cerebral white matter disease and pontine diseas e, which likely represents chronic small vessel ischemic disease.
--- NOTE | 2022-08-30 14:31 | ECG_ITS ---
Measurements Intervals [place] Rate: 70 P: 70 SC: 229 QRS: -2 QRSD: 95 T: 57 QT: 417 QTc: 451 Interpretive Statements SINUS RHYTHM WITH FIRST DEGREE AV BLOCK CAN NOT RULE OUT SEPTAL INFARCT, AGE INDETERMINATE ABNORMAL ECG COMPARED TO ECG 05/10/2022 09:58:50 FIRST DEGREE AV BLOCK NOW PRESENT CRITERIA FOR INFERIOR INFARCT NO LONGER APPRECIATED Electronically Signed On 08-31-2022 14:00:54 [employer]ORIST CLIMBER by Quique Meadows M.D.
[2022-08-30 14:42] LABS: Glucose Point of Care 133 mg/dl (65-105)
[2022-08-30 14:51] VITALS: BP 185/78; PULSE 70; RESP 18; TEMP 36.7; O2SAT 99
[2022-08-30 15:03] LABS: Basophils Percent Auto 0.7 % (0.2-1.2); Eosinophils Absolute Auto 0.3 K/mm3 (0-0.3); Eosinophils Percent Auto 5.6 % (0-4.4); Hematocrit 41.8 % (42.0-52.0); Hemoglobin 13.8 g/dL (14.0-18.0); Immature Granulocyte Absolute 0.03 K/mm3 (0.00-0.031); Immature Granulocyte Percent A 0.5 % (0-0.5); Lymphocytes Absolute Auto 2.03 K/mm3 (0.9-3.2); Lymphocytes Percent Auto 33.2 % (18.3-44.2); Mean Corpuscular Hemoglobin 29.1 pg (26-34); Mean Corpuscular Volume 88.2 fl (80-100); Mean Platelet Volume 9.7 fl (7.4-10.4); Monocytes Absolute Auto 0.6 K/mm3 (0.1-0.6); Monocytes Percent Auto 9.3 % (2.6-8.5); Neutrophils Absolute Auto 3.1 K/mm3 (1.3-6.7); Neutrophils Percent Auto 50.7 % (45.5-73.1); Platelet Count Result 229 k/mm3 (150-375); Red Blood Count 4.74 M/mm3 (4.6-6.20); Red Cell Distribution Width 14.2 % (11.5-14.5); White Blood Count 6.1 K/mm3 (4.5-10.0)
[2022-08-30 15:13] LABS: Alanine Aminotransferase 37 U/L (6-50); Albumin Level 4.5 g/dL (3.5-5.1); Alkaline Phosphatase 80 U/L (38-126); Anion Gap 9 mmol/L (8-16); Aspartate Amino Transferase 34 U/L (17-59); Bilirubin,Total 0.4 mg/dL (0.2-1.3); Blood Urea Nitrogen 16 mg/dL (9-20); Calcium 9.3 mg/dL (8.4-10.2); Carbon Dioxide 29 mmol/L (22-30); Chloride 100 mmol/L (98-107); Estimated CRCL calculation 52 ml/min; Estimated Glomerular Filt Rate > 60; Glucose 130 mg/dL (65-110); Prothrombin Time 12.8 Seconds (11.1-14.7); Sodium 138 mmol/L (137-145)
[2022-08-30 15:15] LABS: Partial Thromboplastin Time 41.2 SECONDS (22.3-36.8)
[2022-08-30 15:25] LABS: Troponin I < 0.012 ng/mL (0.000-0.034)
--- NOTE | 2022-08-30 15:29 | ED.NEUROSD ---
HPI - Neuro Symptoms/Deficit General Chief Complaint: Suspected CVA Stated Complaint: code stroke Time Seen by Provider: 08/30/22 14:38 History of Present Illness HPI Narrative: Patient is an 87-year-old male with history of CVA who presents ER with concerns for strokelike symptoms. Patient was at his [place] [facility] and was having dizziness with ataxia with walking. He is also having forced deviation of his eyes to the left side. He had no slurred speech or facial droop. Symptoms resolved upon arrival here. Patient did have some ear irrigation performed earlier in the day. He is not having any dizziness or issues during irrigation. No ringing in the ears and no difficulty hearing at this time. Related Data Home Medications Medication Instructions Recorded Confirmed cholecalciferol (vitamin D3) 50 50 mcg PO DAILY 10/23/21 08/30/22 mcg (2,000 unit) capsule (Vitamin D3) donepezil 5 mg tablet 5 mg PO BID 10/23/21 05/10/22 propranolol 160 mg capsule,24 160 mg PO DAILY 10/23/21 08/30/22 hr,extended release selenium 100 mcg tablet 100 mcg PO DAILY 10/23/21 08/30/22 sertraline 50 mg tablet 100 mg PO BID 10/23/21 08/30/22 tamsulosin 0.4 mg capsule 0.4 mg PO HS 10/23/21 08/30/22 magnesium oxide 250 mg PO BID 05/10/22 08/30/22 mirtazapine 7.5 mg tablet 7.5 mg PO DAILY 05/10/22 08/30/22 Allergies Allergy/AdvReac Type Severity Reaction Status Date / Time No Known Allergies Allergy Verified 05/09/22 22:20 Review of Systems Review of Systems: All systems reviewed & are unremarkable except as noted in HPI and below Constitutional: Constitutional: Denies chills, Denies fatigue and Denies fever(s) Eyes: Eyes: Denies diplopia and Denies loss of vision ENT: Reports vertigo, Denies nasal congestion and Denies sinus pressure Cardiovascular: Cardiovascular: Denies chest pain, Denies radiating jaw, neck or arm pain and Denies palpitations Respiratory: Respiratory: Denies cough and Denies dyspnea Gastrointestinal: Gastrointestinal: Denies abdominal pain, Denies diarrhea, Denies nausea and Denies vomiting Neurologic: Reports dizziness, Denies headache(s), Denies focal weakness and Denies numbness [facility] Past Medical History Medical History (Updated 08/30/22 @ 22:13 by Itz Laws MD) Anxiety Arthritis Benign prostatic hyperplasia CVA (cerebral vascular accident) Disc disorder Dizziness Encephalopathy Gout Hypercholesteremia Hypertension Memory loss Obstructive sleep apnea Peripheral nerve disease Squamous cell carcinoma Surgical History Surgical History S/P skin biopsy squamous cell carcinoma S/P TURP Family History Family History Father Unknown family medical history Mother Unknown family medical history Social History Social History (Updated 08/30/22 @ 18:55 by Kathleen Gonzalez NP) Social History: 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 Patient wishes to be a full code at this time. Patient also states that his son Sameer or his daughter Marla will be surrogate for him if he is not able to make his own decisions. Patient lives at home by himself and wants to keep it that way. he is Smoking packs per day: 1 Smoking cigarettes per day: 20.0 Smoking status: Former smoker Alcohol intake: former Drinks per week: 3 Alcohol use details: He no longer likes beer Substance use: never Substance use type: does not use Lack of Transportation: No Lack of Food: Never True Current Housing: I Have Housing Concerned About Future Housing: No Difficulty Paying Gas/Electric Bills: No Difficulty Paying for Meds: No Currently Unemployed: No Education: Master's Degree or Higher Difficulty w/ Childcare or Family Care: No Additional occupation/education comments: [employer] Hand of malpractice and personal injury Gender alpesh
[2022-08-30 16:14] VITALS: BP 148/72; PULSE 76; RESP 20; O2SAT 99
--- NOTE | 2022-08-30 16:44 | PM.IMHP ---
H&P: HPI History of Present Illness Date/Time: 08/30/22 16:44 Chief Complaint: dizziness Narrative: The patient stated that he had his ears cleaned today.He stated that he felt dizzy afterward. He has no focal weakness. he stated that his ears feel full. chest x ray was read as Extensive mixed interstitial and airspace disease of the mid and lower lungs which may reflect edema or pneumonia. Head ct was read as 1. No acute intracranial abnormality. 2:? Chronic age-related findings. he was found to be negative for influenza a ,b, and covid negative.The patient is being admitted for observation status on the date of service 08/30/2022 Review of Systems Review of Systems: see [facility] Past Medical History Medical History (Updated 08/30/22 @ 19:04 by Kathleen Gonzalez NP) Anxiety Arthritis Benign prostatic hyperplasia CVA (cerebral vascular accident) Disc disorder Dizziness Encephalopathy Gout Hypercholesteremia Hypertension Memory loss Obstructive sleep apnea Peripheral nerve disease Squamous cell carcinoma Surgical History Surgical History S/P skin biopsy squamous cell carcinoma S/P TURP Family History Family History Father Unknown family medical history Mother Unknown family medical history Social History Social History (Updated 08/30/22 @ 18:55 by Kathleen Gonzalez NP) Social History: 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 Patient wishes to be a full code at this time. Patient also states that his son Sameer or his daughter Marla will be surrogate for him if he is not able to make his own decisions. Patient lives at home by himself and wants to keep it that way. 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 Gender identity (if verbalized by the patient): Male Sexual Orientation (if Verbalized by the Patient): Straight or Heterosexual Spiritual care concerns: No Agree to blood products: Yes Meds Home Medications and Allergies Home Medications Medication Instructions Recorded Confirmed Type allopurinol 300 mg tablet 300 mg PO DAILY 10/23/21 05/10/22 History cholecalciferol (vitamin D3) 50 50 mcg PO DAILY 10/23/21 05/10/22 History mcg (2,000 unit) capsule (Vitamin D3) cyanocobalamin (vitamin B-12) 1,000 mcg PO DAILY 10/23/21 05/10/22 History 1,000 mcg tablet donepezil 5 mg tablet 5 mg PO BID 10/23/21 05/10/22 History fenofibrate nanocrystallized 48 mg 48 mg PO DAILY 10/23/21 05/10/22 History tablet propranolol 160 mg capsule,24 160 mg PO DAILY 10/23/21 05/10/22 History hr,extended release selenium 100 mcg tablet 100 mcg PO DAILY 10/23/21 05/10/22 History sertraline 50 mg tablet 100 mg PO BID 10/23/21 05/10/22 History tamsulosin 0.4 mg capsule 0.4 mg PO HS 10/23/21 05/10/22 History magnesium oxide 250 mg PO BID 05/10/22 05/10/22 History mirtazapine 7.5 mg tablet 7.5 mg PO HS 05/10/22 05/10/22 History felodipine 5 mg tablet,extended 10 mg PO DAILY #14 tabs 05/16/22 Rx release 24 hr finasteride 5 mg tablet (Proscar) 5 mg PO HS #7 tabs 05/16/22 Rx potassium chloride 20 mEq oral 60 meq PO BID #12 ea 05/16/22 Rx packet sennosides 8.6 mg-docusate sodium 1 tab-cap PO HS PRN constipation 05/16/22 Rx 50 mg
[2022-08-30 17:06] LABS: Influenza A QL RT-PCR Negative (Negative); Influenza B QL RT-PCR Negative (Negative); SARS-CoV-2 RNA PCR Negative
--- NOTE | 2022-08-30 17:45 | PC.NURSE ---
This patient, Ezra Arias, was admitted to Medical Room 258-01. Patient/family oriented to hospital policies and general routines including ID bracelet, bed and alarms, visiting hours, pain management, procedures, bathroom and other care routines, personal items, smoking policy, room service/diet, and visiting hours. Information on how to activate the Rapid Response Team has been discussed. Patient/Family are encouraged to report perceived risks to care and to ask questions if they do not understand what they are told or what they should do.
[2022-08-30 17:53] VITALS: BMI 25.6
[2022-08-30 18:36] VITALS: BP 173/77; PULSE 65; RESP 20; TEMP 36.7; O2SAT 99
[2022-08-30 20:00] VITALS: BP 172/72; BP 172/75; PULSE 65; PULSE 66; PULSE 76; RESP 18; TEMP 36.5; O2SAT 97; O2SAT 98
[2022-08-30 20:21] VITALS: BP 135/77; PULSE 71; RESP 18; TEMP 36.5; O2SAT 98
[2022-08-30 20:22] VITALS: BP 121/93; PULSE 76; RESP 18; TEMP 36.5; O2SAT 97
[2022-08-30] MEDS: MECLIZINE HCL 12.5 MG TABLET PO (20:52)
[2022-08-30] MEDS: TAMSULOSIN HCL 0.4 MG CAPSULE PO (23:44)
[2022-08-30] MEDS: traZODone HCL 50 MG TABLET PO (23:44)
[2022-08-30] MEDS: SERTRALINE HCL 50 MG TABLET 100 MG PO (23:45)
[2022-08-31] VITALS (10 sets, daily range): BP systolic 120–170; BP diastolic 58–76; PULSE 55–100; RESP 16–58; TEMP 36.1–36.8; O2SAT 20–99
--- NOTE | 2022-08-31 | ECHO_ITS ---
Patient Info Name: Ezra Arias Age: 87 years : 1935 Gender: Male Ht: 71 in Wt: 183 lbs BSA: 2.05 m2 HR: 48 bpm BP: 152 / 70 mmHg Heart Rhythm: Sinus Rhythm, Bradycardia Technical Quality: Good Exam Date: 08/31/2022 2:16 PM Exam Location: [facility] Room: 258 Patient Status: Inpatient Admit Date: 08/30/2022 Staff Ordering Physician: Kathleen Gonzalez NP Sound Engineer: Any Ma RDCS Attending Provider: Maikol Reed MD Referring Physician: Lisa ACOSTA; Exam Type: CA echo limited w bubble study Study Info Indications - dizziness tia Limited two-dimensional transthoracic echocardiogram is performed with agitated saline. Contrast/Agitated Saline Contrast/Ag. Saline: Agitated Saline Amount: 20.00 ml Existing IV Access: Yes IV Access Condition: patent with no signs of infiltration Summary 1. Left ventricular chamber dimension is normal. 2. Left ventricular systolic function is normal, estimated at 55-60%. 3. No evidence for interatrial shunt with injection of agitated saline with and without Valsalva. Left Ventricle Left ventricular chamber dimension is normal. Left ventricular systolic function is normal, estimated at 55-60%. Right Ventricle Right ventricular chamber dimension is normal. Right ventricular systolic function is normal. Atrial Septum No evidence for interatrial shunt with injection of agitated saline with and without Valsalva. Mitral Valve The mitral valve has normal leaflets. The mitral valve annulus is mildly calcified. Report Signatures
[2022-08-31 08:48] LABS: Basophils Percent Auto 0.7 % (0.2-1.2); Eosinophils Absolute Auto 0.3 K/mm3 (0-0.3); Eosinophils Percent Auto 5.3 % (0-4.4); Hematocrit 38.5 % (42.0-52.0); Hemoglobin 12.4 g/dL (14.0-18.0); Immature Granulocyte Absolute 0.02 K/mm3 (0.00-0.031); Immature Granulocyte Percent A 0.4 % (0-0.5); Lymphocytes Absolute Auto 2.14 K/mm3 (0.9-3.2); Lymphocytes Percent Auto 37.6 % (18.3-44.2); Mean Corpuscular HGB Conc 32.2 g/dl (32-36); Mean Corpuscular Hemoglobin 28.4 pg (26-34); Mean Corpuscular Volume 88.3 fl (80-100); Mean Platelet Volume 9.9 fl (7.4-10.4); Monocytes Absolute Auto 0.7 K/mm3 (0.1-0.6); Monocytes Percent Auto 12.1 % (2.6-8.5); Neutrophils Absolute Auto 2.5 K/mm3 (1.3-6.7); Neutrophils Percent Auto 43.9 % (45.5-73.1); Platelet Count Result 196 k/mm3 (150-375); Red Blood Count 4.36 M/mm3 (4.6-6.20); Red Cell Distribution Width 13.9 % (11.5-14.5); White Blood Count 5.7 K/mm3 (4.5-10.0)
[2022-08-31 08:57] LABS: Alanine Aminotransferase 28 U/L (6-50); Albumin Level 3.7 g/dL (3.5-5.1); Alkaline Phosphatase 61 U/L (38-126); Anion Gap 7 mmol/L (8-16); Aspartate Amino Transferase 25 U/L (17-59); Bilirubin,Total 0.5 mg/dL (0.2-1.3); Blood Urea Nitrogen 16 mg/dL (9-20); Calcium 8.3 mg/dL (8.4-10.2); Carbon Dioxide 28 mmol/L (22-30); Chloride 103 mmol/L (98-107); Estimated CRCL calculation 50 ml/min; Estimated Glomerular Filt Rate > 60; Glucose 101 mg/dL (65-110); Potassium 3.2 mmol/L (3.4-5.0); Sodium 138 mmol/L (137-145)
[2022-08-31] MEDS: MIRTAZAPINE 7.5 MG TABLET PO (09:52)
[2022-08-31] MEDS: SERTRALINE HCL 50 MG TABLET 100 MG PO ×2 (09:52→16:44)
[2022-08-31] MEDS: CHOLECALCIFEROL 1,000 UNITS TABLET 2000 UNITS PO (09:53)
[2022-08-31] MEDS: MECLIZINE HCL 12.5 MG TABLET PO ×4 (09:53→20:29)
[2022-08-31 10:36] LABS: NT Pro B Type Natriuretic Pept 455 pg/mL (5-100)
--- NOTE | 2022-08-31 11:15 | PM.IMPN ---
Progress Note: A&P Assessment and Plan (1) Dizziness: Code(s): R42 - Dizziness and giddiness Status: Acute Assessment and Plan: -orthostatic blood pressures every shift -neurology consult -echo from April EF 55-60%, with grade 1 diastolic heart failure -carotid Doppler 50-69% stenosis in the right internal carotid artery by sonographic criteria. Less than 50% stenosis in the left internal carotid artery by sonographic criteria. -meclizine -MRI of the brain still pending (2) Hypertension: Code(s): I10 - Essential (primary) hypertension Status: Chronic Assessment and Plan: -BP is currently 120/60 -continue with felodipine -continue with propranolol -Trend blood pressure -Adjust therapy as indicated (3) Benign prostatic hyperplasia: Qualifiers: Lower urinary tract symptom presence: symptoms absent Qualified Code(s): N40.0 - Benign prostatic hyperplasia without lower urinary tract symptoms Code(s): N40.0 - Benign prostatic hyperplasia without lower urinary tract symptoms Status: Chronic Assessment and Plan: -continue with Proscar -continue with Flomax -Trend urine output (4) Hyperlipidemia: Code(s): E78.5 - Hyperlipidemia, unspecified Status: Acute Assessment and Plan: Heart healthy diet (5) Dementia: Code(s): F03.90 - Unspecified dementia, unspecified severity, without behavioral disturbance, psychotic disturbance, mood disturbance, and anxiety Status: Chronic Assessment and Plan: -continue with sertraline -continue with donepezil -Stable at this time. -Trend mood (6) Obstructive sleep apnea: Code(s): G47.33 - Obstructive sleep apnea (adult) (pediatric) Status: Acute Assessment and Plan: Home settings for CPAP Time Spent With Patient Time with patient: Greater than 35 minutes Subjective Date/time seen: 08/31/22 11:15 Interval history: 08/31/22 1115 Patient was lying in bed. Patient stated that he could get his MRI done today due to the fact that he had his bracelet from the facility on. Patient had no complaints including chest pain, shortness a breath, nausea, vomiting, diarrhea, constipation, weakness, fatigue, dizziness or lightheadedness. Patient stated that he did walk however he then stated he did not remember. 08/30/22 [id number] The patient stated that he had his ears cleaned today.He stated that he felt dizzy afterward. He has no focal weakness. he stated that his ears feel full.? Review of Systems Review of Systems: All systems reviewed & are unremarkable except as noted in HPI and below Exam Narrative: General: well-nourished, well-appearing 87-year-old male, sitting up in bed, comfortable, NARD Neuro: awake, alert and oriented x2, speech clear, no focal neuro deficits noted HEENMT: normocephalic, atraumatic, EOMI, sclerae anicteric, moist oral mucosa Respiratory: Clear to auscultation bilaterally without crackles, rhonchi or wheezes, nonlabored breathing Cardio: regular rate, regular rhythm with S1-S2 Abdomen: nondistended, normoactive bowel sounds, soft, nontender to palpation Extremities: no edema, erythema, or tenderness to palpation, DP pulses 2+ bilaterally Skin: no rashes or lesions, warm and dry Psych: appropriate mood and affect, judgment and insight intact Objective Data Vital Signs Vital Signs: Vital Signs - 24 hr 08/30/22 14:51 08/30/22 16:14 08/30/22 18:36 Temperature 98.0 F 98.0 F Pulse Rate 70 76 65 Respiratory Rate 18 20 20 Blood Pressure 185/78 H 148/72 H 173/77 H Pulse Oximetry 99 99 99 Oxygen Delivery Room Air 08/30/22 18:08 08/30/22 20:00 08/30/22 20:00 Temperature 97.7 F 97.7 F Pulse Rate 66 66 Respiratory Rate 18 18 Blood Pressure 172/75 H 172/72 H Pulse Oximetry 98 98 Oxygen Delivery Room Air 08/30/22 20:21 08/30/22 20:22 08/30/22 20:00
[2022-08-31] MEDS: PROPRANOLOL HCL 60 MG CAPSULE CR 120 MG PO (11:39)
[2022-08-31] MEDS: MAGNESIUM OXIDE 200 MG TABLET PO ×2 (11:40→20:29)
[2022-08-31] MEDS: ENOXAPARIN 40 MG/0.4 ML SYRINGE SUB-Q (14:54)
[2022-08-31] MEDS: TAMSULOSIN HCL 0.4 MG CAPSULE PO (20:29)
[2022-08-31 21:45] LABS: Appearance Urine Clear (Clear); Bilirubin Urine Negative (Negative); Blood Urine Negative (Negative); Color Urine Yellow (Yellow); Glucose Urine UA Negative (Negative); Ketones Urine Trace mg/dL (Negative); Leukocyte Esterase Ur Negative LEU/UL (Negative); Nitrate Urine Negative (Negative); Protein Urine Negative (Negative); Urobilinogen Urine 0.2 mg/dL (<2.0)
[2022-08-31 21:49] LABS: Add Urine Microscopic? YES; Hyaline Casts Urine 20-29 /lpf; Mucus Urine Rare /lpf; Squamous Epithelial Cell Urine Rare /hpf (Few)
--- NOTE | 2022-08-31 23:35 | PC.NURSE ---
urine sample sent to lab for analysis.
[2022-09-01] VITALS (9 sets, daily range): BP systolic 102–166; BP diastolic 50–92; PULSE 53–67; RESP 16–18; TEMP 36.3–36.6; O2SAT 94–100
--- NOTE | 2022-09-01 01:00 | PC.NURSE ---
pt refused evening vital signs and ortho's at 2000 and 0000 becomes agitated with staff, remains on tele monitoring.
--- NOTE | 2022-09-01 06:02 | PC.NURSE ---
pt refused am labs
[2022-09-01 08:16] LABS: Alanine Aminotransferase 26 U/L (6-50); Albumin Level 3.7 g/dL (3.5-5.1); Alkaline Phosphatase 62 U/L (38-126); Anion Gap 7 mmol/L (8-16); Aspartate Amino Transferase 24 U/L (17-59); Basophils Percent Auto 0.5 % (0.2-1.2); Bilirubin,Total 0.4 mg/dL (0.2-1.3); Blood Urea Nitrogen 20 mg/dL (9-20); Calcium 8.3 mg/dL (8.4-10.2); Carbon Dioxide 27 mmol/L (22-30); Chloride 106 mmol/L (98-107); Eosinophils Absolute Auto 0.3 K/mm3 (0-0.3); Eosinophils Percent Auto 4.9 % (0-4.4); Estimated CRCL calculation 61 ml/min; Estimated Glomerular Filt Rate > 60; Glucose 104 mg/dL (65-110); Hematocrit 37.9 % (42.0-52.0); Hemoglobin 12.6 g/dL (14.0-18.0); Immature Granulocyte Absolute 0.03 K/mm3 (0.00-0.031); Immature Granulocyte Percent A 0.5 % (0-0.5); Lymphocytes Absolute Auto 2.22 K/mm3 (0.9-3.2); Lymphocytes Percent Auto 38.9 % (18.3-44.2); Magnesium 2.1 mg/dL (1.6-2.3); Mean Corpuscular HGB Conc 33.2 g/dl (32-36); Mean Corpuscular Hemoglobin 29.2 pg (26-34); Mean Corpuscular Volume 87.9 fl (80-100); Mean Platelet Volume 10.2 fl (7.4-10.4); Monocytes Absolute Auto 0.6 K/mm3 (0.1-0.6); Monocytes Percent Auto 11.2 % (2.6-8.5); Neutrophils Absolute Auto 2.5 K/mm3 (1.3-6.7); Platelet Count Result 195 k/mm3 (150-375); Potassium 3.3 mmol/L (3.4-5.0); Red Blood Count 4.31 M/mm3 (4.6-6.20); Red Cell Distribution Width 13.9 % (11.5-14.5); Sodium 140 mmol/L (137-145); White Blood Count 5.7 K/mm3 (4.5-10.0)
--- NOTE | 2022-09-01 10:19 | WPDNEURCNPN ---
Assessment and Plan Assessment and plan (1) Brain TIA: Code(s): G45.9 - Transient cerebral ischemic attack, unspecified Status: Acute (2) Seizure disorder: Code(s): G40.909 - Epilepsy, unspecified, not intractable, without status epilepticus Status: Acute Plan 1 dementia 2 focal seizures probably right-sided seizure focus with eyes deviation as observed but the possibility of the new stroke have been ruled out. 3 considering the definite documented old stroke and the symptomatology even though the possibility of TIA likely will also add Keppra 500 mg twice a day for the possibility of the seizure as mentioned above. Consult date: 09/01/22 Time Seen: 10:00 Reason for consult: Cerebrovascular accident HPI: Ezra Arias is a 87 year old male admitted to the hospital through the emergency room with the possibility of stroke. Patient reportedly is at the detention and was experiencing dizziness along with difficulties in ambulation. Additionally he was noted to have forced deviation of his eyes to the left side in addition to slurred speech and a facial droop symptomatology resolved by the time he came to the emergency room patient did have some ear irrigation perform earlier in the day he was not complaining of dizziness at least during the irrigation and been had no dizziness or ringing in the ears. His medications included donepezil 5 mg twice a day propranolol 160 mg daily sertraline 100 mg b.i.d. met has a pain 7.5 mg daily and reportedly he is not allergic to any medications. In the past patient has had ongoing history of anxiety, cerebrovascular accident, gout, hypertension with hypercholesterolemia, and memory dysfunction as well. 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 Initial evaluation documented his vital signs to be normal except the blood pressure of 185/78 normal CBC and BMP, negative CT scan of the head and x-ray chest with extensive interstitial airspace disease of the mid and lower lungs, the echocardiogram is normal with no evidence of interatrial shunt during bubble study, he was negative for influenza AB and COVID. Review of Systems Review of Systems: All systems reviewed & are unremarkable except as noted in HPI and below [facility] Past Medical History Medical History (Updated 09/01/22 @ 10:34 by Clinton Vila MD) Anxiety Arthritis Benign prostatic hyperplasia CVA (cerebral vascular accident) Disc disorder Dizziness Encephalopathy Gout Hypercholesteremia Hypertension Memory loss Obstructive sleep apnea Peripheral nerve disease Squamous cell carcinoma Surgical History Surgical History S/P skin biopsy squamous cell carcinoma S/P TURP Family History Family History Father Unknown family medical history Mother Unknown family medical history Social History Social History (Updated 08/30/22 @ 18:55 by Kathleen Gonzalez NP) Social History: 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 Patient wishes to be a full code at this time. Patient also states that his son Sameer or his daughter Marla will be surrogate for him if he is not able to make his own decisions. Patient lives at home by himself and wants to keep it that way. he is Smoking packs per day: 1 Smoking cigarettes per day: 20.0 Smoking status: Former smoker Alcohol intake: former Drinks per week: 3 Alcohol use details: He no longer likes beer Substance use: never Substance use type: does not use Lack of Transportation: No Lack of Food: Never True Current Housing: I Have Housing Concerned About Future Housing: No Difficulty Paying Gas/Electric Bills: No Difficulty Paying for Meds: No Currently Unemployed: No Education: Master's Degree or Higher Difficulty w/ Childcare or Family Care
[2022-09-01] MEDS: MAGNESIUM OXIDE 200 MG TABLET PO (10:24)
[2022-09-01] MEDS: CHOLECALCIFEROL 1,000 UNITS TABLET 2000 UNITS PO (10:24)
[2022-09-01] MEDS: MECLIZINE HCL 12.5 MG TABLET PO ×3 (10:25→17:15)
[2022-09-01] MEDS: MIRTAZAPINE 7.5 MG TABLET PO (10:25)
[2022-09-01] MEDS: PROPRANOLOL HCL 60 MG CAPSULE CR 120 MG PO (10:26)
[2022-09-01] MEDS: SERTRALINE HCL 50 MG TABLET 100 MG PO ×2 (10:26→17:14)
[2022-09-01] MEDS: POTASSIUM CHLORIDE 20 MEQ PACKET (FOR LIQUID) 40 MEQ PO (10:30)
[2022-09-01] MEDS: POTASSIUM CHLORIDE INJ 40 MEQ in SODIUM CHLORIDE 0.9% IV 500 ML 130 MEQ IVPB (10:31)
--- NOTE | 2022-09-01 11:15 | PM.DS ---
DS: Admitting Diagnosis Discharge Date 09/01/22 1115 Admitting Diagnosis seizures DS: Discharge Diagnosis Discharge Diagnosis (1) Dizziness: Code(s): R42 - Dizziness and giddiness Status: Acute Assessment and Plan: -orthostatic blood pressures every shift -neurology consult -echo from April EF 55-60%, with grade 1 diastolic heart failure -carotid Doppler 50-69% stenosis in the right internal carotid artery by sonographic criteria. Less than 50% stenosis in the left internal carotid artery by sonographic criteria. -meclizine -MRI of the brain still pending (2) Hypertension: Code(s): I10 - Essential (primary) hypertension Status: Chronic Assessment and Plan: -BP is currently 120/60 -continue with felodipine -continue with propranolol -Trend blood pressure -Adjust therapy as indicated (3) Benign prostatic hyperplasia: Qualifiers: Lower urinary tract symptom presence: symptoms absent Qualified Code(s): N40.0 - Benign prostatic hyperplasia without lower urinary tract symptoms Code(s): N40.0 - Benign prostatic hyperplasia without lower urinary tract symptoms Status: Chronic Assessment and Plan: -continue with Proscar -continue with Flomax -Trend urine output (4) Hyperlipidemia: Code(s): E78.5 - Hyperlipidemia, unspecified Status: Acute Assessment and Plan: Heart healthy diet (5) Dementia: Code(s): F03.90 - Unspecified dementia, unspecified severity, without behavioral disturbance, psychotic disturbance, mood disturbance, and anxiety Status: Chronic Assessment and Plan: -continue with sertraline -continue with donepezil -Stable at this time. -Trend mood (6) Obstructive sleep apnea: Code(s): G47.33 - Obstructive sleep apnea (adult) (pediatric) Status: Acute Assessment and Plan: Home settings for CPAP (7) Seizure disorder: Code(s): G40.909 - Epilepsy, unspecified, not intractable, without status epilepticus Status: Acute Assessment and Plan: Started patient on 500 of Keppra b.i.d. (8) Brain TIA: Code(s): G45.9 - Transient cerebral ischemic attack, unspecified Status: Acute Assessment and Plan: MRI was negative for stroke however did show couple strokes. All other exams came back stable DS: Summary Hospital Course Hospital Course: Patient is an 87-year-old male with a past medical history of hypertension, dementia, stroke, ELIDIA who presented to the ED with complaints of dizziness. Patient had his ears cleaned and felt dizzy afterwards. MRI was performed and showed no acute stroke however did show some old strokes. Neurology was consulted and feels the patient had a seizure and Keppra was initiated. Carotid Doppler showed 50-69% stenosis in the right carotid artery. Echo from April showed an EF of 55-60% with a grade 1 diastolic dysfunction. Orthostatic blood pressures were negative for any hypotension. Patient was up in the chair worked with PT and OT. Patient is stable for discharge at this time. Labs and vital signs remained stable throughout the entire visit. Patient is ready to go and is insistent on being discharged at this time. Patient will go with PT and OT follow-up orders. Status at Discharge Functional status at discharge: uses cane/walker Overall status at discharge: patient is progressing back to baseline Time Spent with Patient Time attestation: Total time spent providing and/or coordinating discharge services:36 minutes Time spent: Greater than 30 minutes Specific discharge activities: Diagnostic testing, chart review, developing a treatment plan, education, care coordination documentation, physical exam, result review Exam Narrative: General: well-nourished, well-appearing 87-year-old male, sitting up in bed, comfortable, NARD Neuro: awake, alert and
[2022-09-01] MEDS: levETIRAcetam 500 MG TABLET PO (12:37)
[2022-09-01 17:08] LABS: Potassium 3.9 mmol/L (3.4-5.0)
== END 2022-09-01 18:14 ==
LOC: ANHED 15:21 → ANH2MED 22:13
PROVIDERS: Nurse Practitioner; Admitting Provider Hospitalist; Emergency Provider Emergency Medicine; Visit Provider Internal Medicine
DX: G45.9 Transient cerebral ischemic attack, unspecified (principal); G40.909 Epilepsy, unspecified, not intractable, without status epilepticus; I11.0 Hypertensive heart disease with heart failure; I50.30 Unspecified diastolic (congestive) heart failure; N40.0 Benign prostatic hyperplasia without lower urinary tract symptoms; E78.5 Hyperlipidemia, unspecified; F03.90 Unspecified dementia, unspecified severity, without behavioral disturbance, psychotic disturbance, mood disturbance, and anxiety; G47.33 Obstructive sleep apnea (adult) (pediatric); Z99.89 Dependence on other enabling machines and devices; F41.9 Anxiety disorder, unspecified; M19.90 Unspecified osteoarthritis, unspecified site; Z20.822 Contact with and (suspected) exposure to COVID-19; R90.82 White matter disease, unspecified; G93.40 Encephalopathy, unspecified; M10.9 Gout, unspecified; G62.9 Polyneuropathy, unspecified; Z87.891 Personal history of nicotine dependence; F10.90 Alcohol use, unspecified, uncomplicated; R91.8 Other nonspecific abnormal finding of lung field; I44.0 Atrioventricular block, first degree; R94.31 Abnormal electrocardiogram [ECG] [EKG]; Z86.73 Personal history of transient ischemic attack (TIA), and cerebral infarction without residual deficits; Z79.899 Other long term (current) drug therapy
CPT/HCPCS: 36415; 70450; 70553; 71045; 80053; 81001; 82948; 83735; 83880; 84132; 84443; 84484; 85025; 85610; 85730; 87086; 87088; 87636; 93005; 93308; 93880; 96365; 96366; 96375; 97161; 97165; 99285; A9270; A9577; G0378; J1650; J3480; J7040